=== PATIENT | female | born 1990 | race Two or more races ===

== ENCOUNTER 2024-10-26 12:54 | Inpatient (IN) | payer MEDICAID, OTHER ==
[~2024-10-26] VITALS: Ht 157.5 cm; Wt 49.5 kg
[2024-10-26] MEDS: MAGNESIUM SULFATE 1GM/100ML 100 ML IV ONE ×2 (01:15→03:01)
[2024-10-26] MEDS: cefTRIAXone 1GM/50ML D5W 50 ML IV ONE (01:15)
--- NOTE | 2024-10-26 13:16 | ED.PDOC ---
GI ASSESSMENT HPI Comments 34 y/o F, presents to the ED for CC of abdominal pain. Patient states, she has been experiencing diffuse abdominal pain with associated symptoms of nausea/vomiting onset, today (10/26/24). Patient reports, having ate [employer] last night (10/26/24) and is unsure if symptoms are related. Patient denies , diarrhea, hematemesis, or melena. No other symptoms or modifying factors present at this time. Time Seen by MD: 13:00 Reviewed Notes: Nurses Notes, Medications, Allergies Allergies: Coded Allergies: NO KNOWN ALLERGIES (Unverified , 10/26/24) Home Meds Active Scripts Ondansetron Odt 4MG Tab (ZOFRAN PO) 4 Mg Tb, 4 MG PO DAILY for 5 Days, #5 TAB ODT TAB-DISSOLVE IN MOUTH, THEN SWALLOW Prov:ALIZE BHATT MD 10/26/24 Information Source: Patient Mode of Arrival: Ambulatory Timing: Hours Duration: Since onset Prehospital treatment: None Quality: None Vomitus: Watery Stool: Normal Severity: Moderate Recent: None Recent Hx of: None Pain Location: Diffuse Modifying Factors: Nothing Associated sign and symptoms: Nausea, Vomiting, Abdominal Pain Past Medical History PAST MEDICAL HISTORY: Denies Surgical History: Denies all surgeries [employer]REDDED [employer] MACHINE History: Denies all [employer]REDDED [employer]IG[employer] MACHINE Hx Family History Family History: Unknown Social History Smoker: Non-Smoker Alcohol: Denies ETOH Use Drugs: Denies Drug Use Lives In: Home Constitutional: denies: chills, diaphoresis, fatigue, fever, malaise, sweats, weakness, others EENTM: denies: blurred vision, double vision, ear bleeding, ear discharge, ear drainage, ear pain, ear ringing, eye pain, eye redness, hearing loss, mouth pain, mouth swelling, nasal discharge, nose bleeding, nose congestion, nose pain, photophobia, tearing, throat pain, throat swelling, voice changes, others Respiratory: denies: cough, hemoptysis, orthopnea, SOB at rest, shortness of breath, SOB with excertion, stridor, wheezing, others Cardiovascular: denies: chest pain, dizzy spells, diaphoresis, Dyspnea on exertion, edema, irregular heart beat, left arm pain, lightheadedness, palpitations, PND, syncope, others Gastrointestinal: reports: abdominal pain, nausea, vomiting; denies: abdomen distended, blood streaked bowels, constipated, diarrhea, dysphagia, difficulty swallowing, hematemesis, melena, poor appetite, poor fluid intake, rectal bleeding, rectal pain, others Genitourinary: denies: abnormal vagina bleeding, burning, dyspareunia, dysuria, flank pain, frequency, hematuria, incontinence, pain, , vagina discharge, urgency, others Neurological: denies: dizziness, fainting, headache, left sided numbness, left sided weakness, numbness, paresthesia, pre-existing deficit, right sided numbness, right sided weakness, seizure, speech problems, tingling, tremors, weakness, others Musculoskeletal: denies: back pain, gout, joint pain, joint swelling, muscle pain, muscle stiffness, neck pain, others Integumetry: denies: bruises, change in color, change in hair/nails, dryness, laceration, lesions, lumps, rash, wounds, others Allergic/Immunocompromised: denies: Difficulty Healing, Frequent Infections, Hives, Itching, others Hematologic/Lymphatic: denies: anemia, blood clots, easy bleeding, easy bruising, swollen glands, others Endocrine: denies: excessive hunger, excessive sweating, excessive thirst, excessive urination, flushing, intolerance to cold, intolerance to heat, unexplained weight gain, unexplained weight loss, others Psychiatric: denies: anxiety, bipolar disorder, depression, hopeless, panic disorder, schizophrenia, sleepless, suicidal, others All Other Systems: Reviewed and Negative Physical Exam General Appearance: Moderate Distress HEENT: Normal ENT Inspection, Pharynx Normal, TMs Normal Neck: Full Range of Motion, Non-Tender, Normal, Normal Inspection Respiratory: Chest Non-Tender, Lungs Clear, No Accessory Muscle Use, No Respiratory Distress, Normal Breath Sounds Cardiovascular: No Edema, No JVD, No Murmur, No Gallop, Normal Peripheral Pulses, Regular Rate/Rhythm Breast Exam: Deferred Gastrointestinal: No Organomegaly, Non Tender, No Pulsatile Mass, Normal Bowel Sounds, Soft Genitalia: Deferred Pelvic: Deferred Rectal: Deferred Extremities: No calf tenderness, Normal capillary refill, Normal inspection, Normal range of motion, Non-tender, No pedal edema Musculoskeletal : Apperance: Normal Neurologic: Alert, set up mold technician II-XII nml as Tested, No Motor Deficits, Normal Affect, Normal Mood, No Sensory Deficits Cerebellar Function: Normal Reflexes: Normal Skin: Dry, Normal Color, Warm Peripheral Pulses: 3+ Radial (R), 3+ Radial (L) Lymphatic: No Adenopathy Was a procedure done? Was a procedure done?: No GI differential Dx Differential Diagnosis: Constipation, Diverticular disease, Esophagitis, Gastritis/PUD, Gastroenteritis, Electrolyte Imbalance, Food Poisoning, Bacterial, Viral X-Ray, Labs, Meds, VS Vital Signs Date Time Temp Pulse Resp B/P (MAP) Pulse Ox O2 Delivery O2 Flow Rate FiO2 10/26/24 15:37 97.7 94 18 102/64 (77) 96 97.7 10/26/24 13:08 98.8 108 20 93/67 (76) 97 98.8 Lab Test 10/26/24 13:15 10/26/24 13:10 Range/Units White Blood Count 6.6 4.4-10.8 10^3/uL Red Blood Count 3.69 L 4.0-5.20 10^6/uL Hemoglobin 13.3 12.2-16.2 g/dL Hematocrit 38.4 36.0-46.0 % Mean Corpuscular Volume 104.1 H 80.0-100.0 fL Mean Corpuscular Hemoglobin 36.0 H 28.0-32.0 pg Mean Corpuscular Hemoglobin Concent 34.5 32.0-36.0 g/dL Red Cell Distribution Width 14.8 H 11.8-14.3 % Platelet Count 180 140-450 10^3/uL Mean Platelet Volume 8.0 6.9-10.8 fL Neutrophils (%) (Auto) 83.8 H 37.0-80.0 % Lymphocytes (%) (Auto) 7.9 L 10.0-50.0 % Monocytes (%) (Auto) 7.8 0.0-12.0 % Eosinophils (%) (Auto) 0.0 0.0-7.0 % Basophils (%) (Auto) 0.5 0.0-2.0 % Neutrophils # (Auto) 5.5 1.6-8.6 10 ^3/uL Lymphocytes # (Auto) 0.5 0.4-5.4 10 ^3/uL Monocytes # (Auto) 0.5 0-1.3 10 ^3/uL Eosinophils # (Auto) 0 0-0.8 10 ^3/uL Basophils # (Auto) 0 0-0.2 10 ^3/uL Nucleated Red Blood Cells 0.3 % Urine Color Yellow Yellow Urine Clarity Clear Clear Urine pH 5.5 5.0-9.0 Urine Specific [place] 1.027 1.001-1.035 Urine Protein Negative Negative Urine Ketones Trace Negative Urine Blood Negative Negative /uL Urine Nitrite Negative Negative Urine Bilirubin Negative Negative Urine Urobilinogen Normal Negative mg/dL Urine Leukocyte Esterase Negative Negative /uL Urine RBC 2 0 - 4 /hpf Urine Microscopic WBC 5 0-5 /HPF Urine Squamous Epithelial Cells Few <5 /hpf Urine Bacteria Few H None Seen /hpf Urine Glucose Normal Normal mg/dL Current Medications Medications (Trade) Dose Ordered Sig/Jose Route Start Time Stop Time Status Last Admin Ondansetron HCl (Zofran) 4 mg ONCE ONCE IV 10/26/24 13:15 10/26/24 13:16 DC 10/26/24 14:31 Sodium Chloride 1,000 ml @ 1,000 mls/hr Q1H ONCE IV 10/26/24 13:15 10/26/24 14:14 DC 10/26/24 14:21 Patient alert. Complaining of nausea vomiting. Blood pressure slightly low. Saturation pristine on room air. Establish intravenous access. Was given fluids. Was given Zofran. Reviewed her history. Continue monitoring. WBC within normal limits. Abdomen is soft nontender. No sign of distress. Urinalysis within normal limits. Was given prescription of Zofran. Was told to follow up with her primary care physician. Was told to come back if there is any problem. Went to discharge the patient. She continues to have abdominal pain. Was given morphine. Was given Zofran. Explained to the patient that she will be admitted for further studies. Time of 1ST Reevaluation: 13:30 Reevaluation 1ST: Unchanged Patient Education/Counseling: Diagnosis, Treatment Family Education/Counseling: No Family Present Departure 1 Departure Time of Disposition: 13:25 Impression: Primary Impression: Gastroenteritis Disposition: 09 ADMITTED INPATIENT Admit to: Med Surg Condition: Guarded e-Prescriptions Ondansetron Odt 4MG Tab (ZOFRAN PO) 4 Mg Tb 4 MG PO DAILY for 5 Days, #5 TAB ODT TAB-DISSOLVE IN MOUTH, THEN SWALLOW Prov: ALIZE BHATT MD 10/26/24 Critical Care Note Critical Care Time?: No Stability Stability form required: No Heart Score Heart Score: Heart Score Response (Comments) Value History N/A 0 EKG N/A 0 Age N/A 0 Risk Factors N/A 0 Troponin N/A 0 Total 0 I personally scribed for ALIZE BHATT MD ([email or web address]) on 10/26/24 at 13:16. Electronically submitted by Tata Tatum ([email or web address]). ALIZE BHATT MD October 26, 2024 13:16
[2024-10-26 13:27] LABS: Basophils # (auto) 0 10 ^3/uL (0-0.2); Basophils % (auto) 0.5 % (0.0-2.0); Eosinophils # (auto) 0 10 ^3/uL (0-0.8); Hemoglobin 13.3 g/dL (12.2-16.2); Lymphocytes # (auto) 0.5 10 ^3/uL (0.4-5.4); Monocytes # (auto) 0.5 10 ^3/uL (0-1.3); Neutrophils % (auto) 83.8 % (37.0-80.0)
[2024-10-26 13:28] LABS: Hematocrit 38.4 % (36.0-46.0); Lymphocytes % (auto) 7.9 % (10.0-50.0); Mean Corpuscular Hgb Conc. 34.5 g/dL (32.0-36.0); Mean Corpuscular Volume 104.1 fL (80.0-100.0); Monocytes % (auto) 7.8 % (0.0-12.0); Neutrophils # (auto) 5.5 10 ^3/uL (1.6-8.6); Nucleated Red Blood Cells % 0.3 %; Platelet Count (auto) 180 10^3/uL (140-450); Red Blood Cells 3.69 10^6/uL (4.0-5.20); Red Cell Distribution Width 14.8 % (11.8-14.3); White Blood Cell 6.6 10^3/uL (4.4-10.8)
[2024-10-26 14:18] LABS: Urine Bacteria FEW /hpf (None Seen); Urine Blood Negative /uL (Negative); Urine Clarity Clear (Clear); Urine Color Yellow (Yellow); Urine Protein, UAD Negative (Negative); Urine Specific Gravity 1.027 (1.001-1.035); Urine Squamous Epithelial Cell FEW /hpf (<5); Urine Urobilinogen Normal (Negative); Urine WBC 5 /HPF (0-5); Urine pH 5.5 (5.0-9.0)
[2024-10-26] MEDS: SODIUM CHLORIDE 0.9% 1,000 ML IV ONE ×2 (14:21→16:15)
[2024-10-26] MEDS ORDERED: ZOFR4T PO (14:30)
[2024-10-26] MEDS: ONDANSETRON HCL 4 MG/2 ML VIAL IV ONE (14:31)
[2024-10-26 15:38] VITALS: PULSE 94; RESP 18; O2SAT 96
--- NOTE | 2024-10-26 16:10 | DVH ---
Exam: CT CT AB PEL WO CON-NO ORAL OR IV History: enteritis Comparison Study: None TECHNIQUE: Multidetector CT of the abdomen was performed from lung bases to pubic symphysis. Imaging was performed without IV contrast. Axial, coronal and sagittal multiplanar reformats were obtained fr om the axial data set by the technologist. Radiation Dose Information: CT Dose: CTDI volume is 5.19 mGy. Dose-length product is 265.76 mGy*cm FINDINGS: Evaluation of solid organs is limited due to lack of intravenous contrast use. Findings: Lung Bases: No acute or significant lung base finding. Normal heart size. No pleural or pericardial effusion. Liver: The liver is normal in size. No focal lesions. Hepatic steatosis. Gallbladder and Biliary Tree: Unremarkable Spleen: Unremarkable Pancreas: The pancreas is grossly normal in appearance. Adrenal Glands: Unremarkable Kidneys: Kidneys are grossly normal without calculi or hydronephrosis. Bladder: Grossly unremarkable for degree of distention. Bowel: The stomach is grossly normal in appearance. Small bowel and colon are normal in caliber and d istribution. The appendix is not visualized; however, no secondary findings of acute appendicitis id entified. Ascites: Absent Lymphadenopathy: No mesenteric, retroperitoneal or periportal lymphadenopathy. Abdominal Wall and Mesentery: Unremarkable. Vasculature: The visualized abdominal aorta is normal in size and caliber. Evaluation of abdominal a nd pelvic vessels is limited due to lack of intravenous contrast. Pelvic Organs: Unremarkable Musculoskeletal: No aggressive focal bony lesions, acute fractures or dislocation. Soft tissues: Unremarkable IMPRESSION: 1. No acute abdominal or pelvic finding. Radiation optimization: All CT scans at this facility use at least one of these dose optimization manjula hniques: automated exposure control mA and/or kV adjustment per patient size (includes targeted exam s where dose is matched to clinical indication) or iterative reconstruction.
[2024-10-26] MEDS: metroNIDAZOLE 500MG/100ML 100 ML IV ONE (16:15)
[2024-10-26] MEDS: PANTOPRAZOLE 40 MG/10 ML VIAL INJ IV ONE (16:15)
--- NOTE | 2024-10-26 16:17 | DVHHPRES ---
History of Present Illness Resident Creating Document: GALLITO BAEZ RESIDENT History of Present Illness This is a 34-year-old female with no past medical history who presented to the ER with a chief complaint of intractable nausea and vomiting for the past day. Per patient, she went out last night to [facility] with her kids, and starting this morning she has been experiencing diffuse lower abdominal pain which is crampy in nature, rated 7/10 in intensity, does not radiate. Associated with vomiting which is clear/yellowish, denies hematemesis or hemoptysis. Patient tolerate any liquid or solid diet. She has never had these symptoms in the past. She denied any recent travel history or history of sick contacts. She denied diarrhea or constipation. Past medical history: None Past surgical history: None OBGYN history: 2 vaginal deliveries Social history: Lives with kids, denies smoking/drug use, drinks occasionally Home medications: None PCP: Reports having a PCP but does not follow Patient seen and examined in the ER. Reporting nausea. Smoke: No ALCOHOL: none Drugs: None Lives: with Family Review of Systems Constitutional: Yes: Chills Gastrointestinal: Nausea, Vomiting, Abdominal Pain Allergies: Coded Allergies: NO KNOWN ALLERGIES (Unverified , 10/26/24) Exam Vital Signs Vital Signs Date Time Temp Pulse Resp B/P (MAP) Pulse Ox O2 Delivery O2 Flow Rate FiO2 10/26/24 15:38 94 18 96 Room Air* 0 21 10/26/24 15:37 97.7 102/64 (77) 97.7 Exam Young female patient sitting comfortably in the chair, no against stress General: Afebrile, mucosae are moist Cardiovascular: Regular S1 and S2. No murmurs, gallops or rubs. No JVD elevation. No pedal edema Respiratory: Normal B/L air entry on room air. Clear lung sounds on auscultation Abdomen: Soft, nontender, nondistended, normoactive bowel sounds, no rebound tenderness, no organomegaly, no masses Genitourinary: Deferred MSK/skin: Mobilizes 4 limbs. Skin is dry and warm Neurological: No motor, no sensitive deficits, normal speech. Pupils are isocoric and reactive. Psych/Mental Status: A/Ox3 Labs/Xrays Labs Test 10/26/24 13:15 10/26/24 13:10 Range/Units White Blood Count 6.6 4.4-10.8 10^3/uL Red Blood Count 3.69 L 4.0-5.20 10^6/uL Hemoglobin 13.3 12.2-16.2 g/dL Hematocrit 38.4 36.0-46.0 % Mean Corpuscular Volume 104.1 H 80.0-100.0 fL Mean Corpuscular Hemoglobin 36.0 H 28.0-32.0 pg Mean Corpuscular Hemoglobin Concent 34.5 32.0-36.0 g/dL Red Cell Distribution Width 14.8 H 11.8-14.3 % Platelet Count 180 140-450 10^3/uL Mean Platelet Volume 8.0 6.9-10.8 fL Neutrophils (%) (Auto) 83.8 H 37.0-80.0 % Lymphocytes (%) (Auto) 7.9 L 10.0-50.0 % Monocytes (%) (Auto) 7.8 0.0-12.0 % Eosinophils (%) (Auto) 0.0 0.0-7.0 % Basophils (%) (Auto) 0.5 0.0-2.0 % Neutrophils # (Auto) 5.5 1.6-8.6 10 ^3/uL Lymphocytes # (Auto) 0.5 0.4-5.4 10 ^3/uL Monocytes # (Auto) 0.5 0-1.3 10 ^3/uL Eosinophils # (Auto) 0 0-0.8 10 ^3/uL Basophils # (Auto) 0 0-0.2 10 ^3/uL Nucleated Red Blood Cells 0.3 % Urine Color Yellow Yellow Urine Clarity Clear Clear Urine pH 5.5 5.0-9.0 Urine Specific [place] 1.027 1.001-1.035 Urine Protein Negative Negative Urine Ketones Trace Negative Urine Blood Negative Negative /uL Urine Nitrite Negative Negative Urine Bilirubin Negative Negative Urine Urobilinogen Normal Negative mg/dL Urine Leukocyte Esterase Negative Negative /uL Urine RBC 2 0 - 4 /hpf Urine Microscopic WBC 5 0-5 /HPF Urine Squamous Epithelial Cells Few <5 /hpf Urine Bacteria Few H None Seen /hpf Urine Glucose Normal Normal mg/dL Assessment/Plan Assessment/Plan ?Pancreatitis - Triglyceride induced R/O Sepsis Acute gastroenteritis likely infectious etiology Lactic Acidosis Intractable nausea and vomiting Macrocytosis CREWS Plan: Admitted to medical unit IV fluids, IV ceftriaxone and IV metronidazole starting 10/26 CT abdomen/pelvis unremarkable for acute etiology Acetaminophen for pain control PRN Follow up with CMP, UDS, lipase, lactic acid level Follow up with B12/folic acid levels Consider fat restricted diet once vomiting resolves Gemfibrozil 600mg bid NPO Plan discussed with patient in which all questions have been answered Goals of care discussed for more than 20 minutes, full code status Case discussed with Dr. Alaniz Plan discussed with: Patient Date of Service: October 26, 2024 Billing Provider: DANICA ALANIZ MD Common Visit Codes: [id number] INP/OBS CARE (HIGH) GALLITO BAEZ RESIDENT October 26, 2024 16:17
[2024-10-26 16:36] LABS: Albumin 3.8 g/dL (3.2-4.8); Anion Gap 16 (5-15); Carbon Dioxide 22 mmol/L (20-31); Chloride 101 mmol/L (98-107); Magnesium 1.7 mg/dL (1.6-2.6); Sodium 139 mmol/L (136-145); Total Protein 7.1 g/dL (5.7-8.2)
[2024-10-26 16:37] LABS: Alanine Aminotransferase 84 U/L (7-40); Alkaline Phosphatase 119 U/L (46-116); Aspartate Aminotransferase 204 U/L (13-40); BUN/Creatinine Ratio 6.1 (10.0-20.0); Blood Urea Nitrogen < 5 mg/dL (9-23); Calcium 8.4 mg/dL (8.7-10.4); Glucose 178 mg/dL (74-106); Potassium 3.4 mmol/L (3.5-5.1)
[2024-10-26 16:42] LABS: Cocaine Screen, Urine Neg (NEGATIVE)
[2024-10-26 16:43] LABS: Amphetamine Screen, Urine Neg (NEGATIVE); Barbiturate Scree,Urine Neg (NEGATIVE); Benzodiazephine Screen, Urine Neg (NEGATIVE); Cannabinoid Screen, Urine Neg (NEGATIVE); Opiate Scree,Urine Neg (NEGATIVE); Phencyclidine Screen, Urine Neg (NEGATIVE)
[2024-10-26] MEDS: POTASSIUM CHL 20MEQ/100ML 100 ML IV SCH (17:15)
[2024-10-26 17:48] LABS: INR 1.23 (0.9-1.15); Partial Thromboplastin Time 25.1 SEC (24.5-34.5); Prothrombin Time 12.8 sec (9.3-11.8)
[2024-10-26 18:27] LABS: Lactic Acid w/Reflex 6.1 mmol/L (0.4-2.0)
[2024-10-26 19:16] LABS: Cholesterol 102 mg/dL (< 200)
[2024-10-26 19:22] LABS: HDL Cholesterol 34 mg/dL (40-59); Triglycerides 693 mg/dL (< 150)
--- NOTE | 2024-10-26 19:54 | DVH ---
INDICATION: transmanitis TECHNIQUE: Multiple real-time sonographic images of the abdomen were obtained. COMPARISON: None FINDINGS: Liver measures 17 cm and demonstrates diffuse increased echogenicity consistent with fatty infiltrati on. No focal lesion is identified in the liver. No evidence of intrahepatic or extrahepatic biliary ductal dilatation with the common bile duct measu ring 3.5 mm. Gallbladder appears unremarkable with no evidence of stones, wall thickening or pericholycystic fluid . Sonographic Sumner's sign was reportedly negative. Right kidney measures 9.8 cm in length and the left 9.9 cm. Both kidneys appear unremarkable with no hydroureteronephrosis. Spleen is normal in size and appears unremarkable. Visualized pancreas appears unremarkable. No free fluid/fluid collection IMPRESSION: No acute abnormality identified. Fatty infiltration of the liver.
[2024-10-26] MEDS: LACTATED RINGER'S 1,000 ML IV ONE (21:00)
[2024-10-26] MEDS: metroNIDAZOLE 500MG/100ML 100 ML IV SCH (22:00)
[2024-10-26] MEDS: ONDANSETRON HCL 4 MG/2 ML VIAL IV PRN (23:59)
[2024-10-27 00:19] LABS: COVID19 ANTIGEN SOFIA FIA NEGATIVE (NEGATIVE); Rapid Influenza A Negative (Negative); Rapid Influenza B Negative (Negative)
[2024-10-27] MEDS: HYDROcodone-ACET 5/325MG TAB PO ONE (01:45)
[2024-10-27] MEDS: POTASSIUM CHL 20MEQ/100ML 100 ML IV SCH (03:01)
[2024-10-27 06:29] LABS: Basophils # (auto) 0 10 ^3/uL (0-0.2); Eosinophils # (auto) 0 10 ^3/uL (0-0.8); Eosinophils % (auto) 0.1 % (0.0-7.0); Hemoglobin 11.2 g/dL (12.2-16.2); White Blood Cell 4.6 10^3/uL (4.4-10.8)
[2024-10-27 06:35] LABS: Basophils % (auto) 0.6 % (0.0-2.0); Hematocrit 32.2 % (36.0-46.0); Lymphocytes # (auto) 0.7 10 ^3/uL (0.4-5.4); Lymphocytes % (auto) 16.1 % (10.0-50.0); Mean Corpuscular Hemoglobin 36.4 pg (28.0-32.0); Mean Corpuscular Hgb Conc. 34.9 g/dL (32.0-36.0); Mean Corpuscular Volume 104.2 fL (80.0-100.0); Monocytes # (auto) 0.5 10 ^3/uL (0-1.3); Monocytes % (auto) 11.4 % (0.0-12.0); Neutrophils # (auto) 3.3 10 ^3/uL (1.6-8.6); Neutrophils % (auto) 71.8 % (37.0-80.0); Nucleated Red Blood Cells % 0.2 %; Platelet Count (auto) 120 10^3/uL (140-450); Red Blood Cells 3.09 10^6/uL (4.0-5.20); Red Cell Distribution Width 14.8 % (11.8-14.3)
[2024-10-27 06:41] LABS: Alkaline Phosphatase 83 U/L (46-116); Anion Gap 11 (5-15); Carbon Dioxide 23 mmol/L (20-31); Chloride 106 mmol/L (98-107); Potassium 4.2 mmol/L (3.5-5.1); Sodium 140 mmol/L (136-145)
[2024-10-27 06:49] LABS: Alanine Aminotransferase 60 U/L (7-40); Albumin 2.9 g/dL (3.2-4.8); Aspartate Aminotransferase 144 U/L (13-40); BUN/Creatinine Ratio 8.2 (10.0-20.0); Bilirubin, Total 1.4 mg/dL (0.2-1.0); Blood Urea Nitrogen < 5 mg/dL (9-23); Calcium 6.9 mg/dL (8.7-10.4); Glucose 133 mg/dL (74-106); Total Protein 5.5 g/dL (5.7-8.2)
[2024-10-27 07:30] VITALS: PULSE 106; RESP 18; O2SAT 98
[2024-10-27] MEDS: cefTRIAXone 1GM/50ML D5W 50 ML IV SCH (09:12)
[2024-10-27] MEDS: LACTATED RINGER'S 1,000 ML IV ONE (09:17)
[2024-10-27] MEDS: GEMFIBROZIL 600 MG TAB PO SCH (10:18)
[2024-10-27 10:58] LABS: Lactic Acid w/Reflex 2.1 mmol/L (0.4-2.0)
[2024-10-27] MEDS: ACETAMINOPHEN 325 MG TAB PO PRN (12:27)
--- NOTE | 2024-10-27 14:28 | DVHPN2 ---
Reviewed: Care Plan, H&P, Labs, Medications, Previous Orders, Radiology Changes from previous H/P or p: No Changes Gastrointestinal: Nausea, Vomiting, Abdominal Pain Objective Vitals Vital Signs Date Time Temp Pulse Resp B/P (MAP) Pulse Ox O2 Delivery O2 Flow Rate FiO2 10/27/24 14:00 91 14 100/68 (79) 95 10/27/24 12:00 98.7 98.7 10/27/24 07:30 Room Air* 0 21 Intake/Output Intake and Output 10/27/24 07:00 Intake Total 1000 ml Balance 1000 ml Intake IV Total 1000 ml Medications Current Medications Medications Dose Ordered Sig/Jose Route Start Time Stop Time Status Last Admin Dose Admin Ceftriaxone Sodium 50 ml @ 100 mls/hr DAILY@09 IV 10/27/24 09:00 10/27/24 09:12 100 MLS/HR Metronidazole 100 ml @ 100 mls/hr Q8HR IV 10/26/24 22:00 10/27/24 06:19 100 MLS/HR Ondansetron HCl 4 mg Q4HPRN PRN IV 10/26/24 16:15 10/26/24 23:59 4 MG Acetaminophen 650 mg Q4HP PRN PO 10/27/24 01:15 10/27/24 12:33 650 MG Gemfibrozil 600 mg Q12HR PO 10/27/24 10:00 10/27/24 10:18 600 MG Laboratory Results Laboratory Tests 10/27/24 05:36 Chemistry Test 10/27/24 05:36 Albumin 2.9 g/dL (3.2-4.8) L Calcium Level 6.9 mg/dL (8.7-10.4) L Total Protein 5.5 g/dL (5.7-8.2) L Lipid panel Test 10/26/24 17:35 Cholesterol Level 102 mg/dL (< 200) HDL Cholesterol 34 mg/dL (40-59) L Triglycerides Level 693 mg/dL (< 150) H LFT Test 10/27/24 05:36 Alanine Aminotransferase (ALT) 60 U/L (7-40) H Alkaline Phosphatase 83 U/L (46-116) Aspartate Amino Transferase (AST) 144 U/L (13-40) H Total Bilirubin 1.4 mg/dL (0.2-1.0) H Urinalysis Test 10/26/24 13:10 Urine Color Yellow (Yellow) Urine Clarity Clear (Clear) Urine pH 5.5 (5.0-9.0) Urine Specific [place] 1.027 (1.001-1.035) Urine Protein Negative (Negative) Urine Ketones Trace (Negative) Urine Blood Negative /uL (Negative) Urine Nitrite Negative (Negative) Urine Bilirubin Negative (Negative) Urine Urobilinogen Normal mg/dL (Negative) Urine Leukocyte Esterase Negative /uL (Negative) Urine RBC 2 /hpf (0 - 4) Urine Microscopic WBC 5 /HPF (0-5) Urine Squamous Epithelial Cells Few /hpf (<5) Urine Bacteria Few /hpf (None Seen) H Urine Glucose Normal mg/dL (Normal) Labs and/or images reviewed: Labs reviewed by me, Image(s) reviewed by me Assessment/Plan Assessment/Plan Systemic inflammatory response syndrome Acute abdominal pain Acute lactic acidosis Intractable nausea and vomiting CREWS Acute pancreatitis lipase 560 Acute enterocolitis: Rocephin Flagyl Acute dehydration: IV fluid Possible food poisoning: Patient atre [employer] yesterday and symptoms developed later Plan discussed with: Patient Date of Service: October 27, 2024 Billing Provider: MARIBELL LOMAX MD Common Visit Codes: [id number] INP/OBS CARE(HIGH) MARIBELL LOMAX MD October 27, 2024 14:27
[2024-10-27 16:00] VITALS: BP 123/89; PULSE 89; RESP 20; TEMP 99.4; O2SAT 98
[2024-10-27 16:22] VITALS: BP 123/89; PULSE 87; RESP 20; TEMP 99.4; O2SAT 98
[2024-10-27 20:00] VITALS: PULSE 83; RESP 19; O2SAT 96
[2024-10-27 21:00] VITALS: BP 118/79; PULSE 83; RESP 19; TEMP 98.5; O2SAT 96
[2024-10-28] VITALS (8 sets, daily range): BP systolic 92–116; BP diastolic 62–85; PULSE 64–91; RESP 15–20; TEMP 97.6–98.5; O2SAT 96–100
--- NOTE | 2024-10-28 08:08 | DVHPN2 ---
Reviewed: Care Plan, H&P, Labs, Medications, Previous Orders, Radiology Changes from previous H/P or p: No Changes Gastrointestinal: Nausea, Vomiting, Abdominal Pain Objective Vitals Vital Signs Date Time Temp Pulse Resp B/P (MAP) Pulse Ox O2 Delivery O2 Flow Rate FiO2 10/28/24 07:49 83 19 96 Room Air* 0 21 10/28/24 05:00 98.3 101/75 (84) 98.3 Intake/Output Intake and Output 10/28/24 07:00 Intake Total 500 ml Balance 500 ml Intake Oral 0 ml IV Total 500 ml # Voids 8 # Bowel Movements 6 Medications Current Medications Medications Dose Ordered Sig/Jose Route Start Time Stop Time Status Last Admin Dose Admin Ceftriaxone Sodium 50 ml @ 100 mls/hr DAILY@09 IV 10/27/24 09:00 10/27/24 09:12 100 MLS/HR Metronidazole 100 ml @ 100 mls/hr Q8HR IV 10/26/24 22:00 10/28/24 05:21 100 MLS/HR Ondansetron HCl 4 mg Q4HPRN PRN IV 10/26/24 16:15 10/27/24 17:28 4 MG Acetaminophen 650 mg Q4HP PRN PO 10/27/24 01:15 10/28/24 05:27 650 MG Gemfibrozil 600 mg Q12HR PO 10/27/24 10:00 10/27/24 21:22 600 MG Laboratory Results Laboratory Tests 10/27/24 05:36 Urinalysis Test 10/26/24 13:10 Urine Color Yellow (Yellow) Urine Clarity Clear (Clear) Urine pH 5.5 (5.0-9.0) Urine Specific [place] 1.027 (1.001-1.035) Urine Protein Negative (Negative) Urine Ketones Trace (Negative) Urine Blood Negative /uL (Negative) Urine Nitrite Negative (Negative) Urine Bilirubin Negative (Negative) Urine Urobilinogen Normal mg/dL (Negative) Urine Leukocyte Esterase Negative /uL (Negative) Urine RBC 2 /hpf (0 - 4) Urine Microscopic WBC 5 /HPF (0-5) Urine Squamous Epithelial Cells Few /hpf (<5) Urine Bacteria Few /hpf (None Seen) H Urine Glucose Normal mg/dL (Normal) Labs and/or images reviewed: Labs reviewed by me, Image(s) reviewed by me Assessment/Plan Assessment/Plan Systemic inflammatory response syndrome Acute abdominal pain Acute lactic acidosis Intractable nausea and vomiting CREWS Acute pancreatitis lipase 560; GI consult for Dr Osvaldo Loomis pending Acute enterocolitis: Edilbertoepmaggie Hodgeyl Acute dehydration: IV fluid Possible food poisoning: Patient atre [employer] yesterday and symptoms developed later Patient feels better Plan discussed with: Patient My Orders Orders - MARIBELL LOMAX MD Procedure Category Date Status Time * Gi [facility] Consulting Manager CONS 10/28/24 Transmitted 01:29 Date of Service: October 28, 2024 Billing Provider: MARIBELL LOMAX MD Common Visit Codes: [id number] INP/OBS CARE(HIGH) MARIBELL LOMAX MD October 28, 2024 08:08
--- NOTE | 2024-10-28 19:01 | DVHINCON2 ---
Date of service: October 28, 2024 Referring Physician German Reason for Consultation Pancreatitis Abdominal pain History of Present Illness The patient is a 34-year-old female with no significant past medical history admitted with abdominal pain, nausea and vomiting. Patient states that she had projectile vomiting. She has no prior history. Patient was noted to have elevated lipase and lactic acid. She was started on antibiotics. GI consultation was obtained. Patient has no prior history of pancreatitis. She denies any hematemesis, melena or hematochezia. She denies any ill contacts. Patient was noted to have hypertriglyceridemia. Past Medical History Denies Past Surgical History Denies past surgical history Family History: Hypercholesterolemia G8 MOTHER G8 FATHER Hypertension G8 MOTHER G8 FATHER Family History No gastrointestinal diseases or malignancies Social History Social alcohol No tobacco No recreational drug use Allergies: Coded Allergies: NO KNOWN ALLERGIES (Unverified , 10/26/24) Home Meds Active Scripts Ondansetron Odt 4MG Tab (ZOFRAN PO) 4 Mg Tb, 4 MG PO DAILY for 5 Days, #5 TAB ODT TAB-DISSOLVE IN MOUTH, THEN SWALLOW Prov:ALIZE BHATT MD 10/26/24 Review of Systems General: No weight loss Head: No visual changes or headaches Heart: No chest pain or palpitations PULM: No cough wheeze or shortness of breath GI: See HPI : No dysuria hematuria Endocrine: Newly diagnosed hypertriglyceridemia Skin: No rashes bruises or pruritus Neuro: No stroke or seizure Psych: No depression anxiety or psychosis Heme: No anemia or malignancy Vital Signs Vital Signs Date Time Temp Pulse Resp B/P (MAP) Pulse Ox O2 Delivery O2 Flow Rate FiO2 10/28/24 17:00 98.4 73 19 110/78 (89) 98 98.4 10/28/24 07:49 Room Air* 0 21 Physical Exam General: Alert and oriented x4 no distress Head: NC/AT EOMI PERRLA O/P clear Heart: Regular rate and rhythm no murmurs rubs or gallops Lungs: Clear to auscultation bilaterally Abdomen: Soft mild epigastric tenderness to palpation normal active bowel s ounds Extremity: No clubbing cyanosis or edema Neuro: Moves all four extremities Labs/Diagnostic Data Labs Test 10/27/24 12:42 10/27/24 05:36 10/26/24 23:30 10/26/24 17:35 Range/Units Lactic Acid Level 2.2 *H 0.4-2.0 mmol/L White Blood Count 4.6 # 4.4-10.8 10^3/uL Red Blood Count 3.09 L 4.0-5.20 10^6/uL Hemoglobin 11.2 #L 12.2-16.2 g/dL Hematocrit 32.2 #L 36.0-46.0 % Mean Corpuscular Volume 104.2 H 80.0-100.0 fL Mean Corpuscular Hemoglobin 36.4 H 28.0-32.0 pg Mean Corpuscular Hemoglobin Concent 34.9 32.0-36.0 g/dL Red Cell Distribution Width 14.8 H 11.8-14.3 % Platelet Count 120 L 140-450 10^3/uL Mean Platelet Volume 8.4 6.9-10.8 fL Neutrophils (%) (Auto) 71.8 37.0-80.0 % Lymphocytes (%) (Auto) 16.1 10.0-50.0 % Monocytes (%) (Auto) 11.4 0.0-12.0 % Eosinophils (%) (Auto) 0.1 0.0-7.0 % Basophils (%) (Auto) 0.6 0.0-2.0 % Neutrophils # (Auto) 3.3 1.6-8.6 10 ^3/uL Lymphocytes # (Auto) 0.7 0.4-5.4 10 ^3/uL Monocytes # (Auto) 0.5 0-1.3 10 ^3/uL Eosinophils # (Auto) 0 0-0.8 10 ^3/uL Basophils # (Auto) 0 0-0.2 10 ^3/uL Nucleated Red Blood Cells 0.2 % Sodium Level 140 136-145 mmol/L Potassium Level 4.2 3.5-5.1 mmol/L Chloride Level 106 98-107 mmol/L Carbon Dioxide Level 23 20-31 mmol/L Anion Gap 11 5-15 Blood Urea Nitrogen < 5 L 9-23 mg/dL Creatinine 0.61 0.550-1.02 mg/dL Glomerular Filtration Rate Calc 120 >90 mL/min BUN/Creatinine Ratio 8.2 L 10.0-20.0 Serum Glucose 133 H 74-106 mg/dL Calcium Level 6.9 L 8.7-10.4 mg/dL Total Bilirubin 1.4 H 0.2-1.0 mg/dL Aspartate Amino Transferase (AST) 144 H 13-40 U/L Alanine Aminotransferase (ALT) 60 H 7-40 U/L Alkaline Phosphatase 83 46-116 U/L Total Protein 5.5 L 5.7-8.2 g/dL Albumin 2.9 L 3.2-4.8 g/dL Influenza Type A Antigen Negative Negative Influenza Type B Antigen Negative Negative SARS-CoV-2 Antigen (Rapid) Negative NEGATIVE Triglycerides Level 693 H < 150 mg/dL Cholesterol Level 102 < 200 mg/dL LDL Cholesterol < 100 mg/dL HDL Cholesterol 34 L 40-59 mg/dL Plasma/Serum Blood Alcohol 5.6 <10 mg/dL Test 10/26/24 13:15 10/26/24 13:10 Range/Units Prothrombin Time 12.8 H 9.3-11.8 sec Prothrombin Time INR 1.23 H 0.9-1.15 Activated Partial Thromboplast Time 25.1 24.5-34.5 SEC Hemoglobin A1c 4.9 <5.7 % A1C Magnesium Level 1.7 1.6-2.6 mg/dL Lipase 560 H 12-53 U/L Vitamin B12 Level 762 211-911 pg/mL Vitamin D 25-Hydroxy 44.5 30.0-100 ng/mL Thyroid Stimulating Hormone (TSH) 2.28 0.55-4.78 uIU/mL Urine Color Yellow Yellow Urine Clarity Clear Clear Urine pH 5.5 5.0-9.0 Urine Specific [place] 1.027 1.001-1.035 Urine Protein Negative Negative Urine Ketones Trace Negative Urine Blood Negative Negative /uL Urine Nitrite Negative Negative Urine Bilirubin Negative Negative Urine Urobilinogen Normal Negative mg/dL Urine Leukocyte Esterase Negative Negative /uL Urine RBC 2 0 - 4 /hpf Urine Microscopic WBC 5 0-5 /HPF Urine Squamous Epithelial Cells Few <5 /hpf Urine Bacteria Few H None Seen /hpf Urine Glucose Normal Normal mg/dL Urine Opiates Screen Neg NEGATIVE Urine Fentanyl Screen Neg NEGATIVE Urine Barbiturates Screen Neg NEGATIVE Urine Phencyclidine Screen Neg NEGATIVE Urine Amphetamines Screen Neg NEGATIVE Urine Benzodiazepines Screen Neg NEGATIVE Urine Cocaine Screen Neg NEGATIVE Urine Cannabinoids Screen Neg NEGATIVE Assessment 1. Abdominal pain 2. Elevated triglycerides 3. Acute pancreatitis 4. Nausea and vomiting Acute pancreatitis likely secondary to hypertriglyceridemia. No evidence of acute pancreatitis on imaging or evidence of gallstones. Differential diagnosis includes gastroenteritis Problems(with codes): (1) Gastroenteritis (2) Acute pancreatitis Plan/Recommendation 1. Continue antibiotics 2. Follow labs 3. Clear liquid diet as tolerated 4. No GI intervention at this time 5. Pain control and antiemetics 6. We will discuss my findings and recommendations with the hospital Plan discussed with: Patient GABBY MCKEON MD October 28, 2024 19:01
[2024-10-29] VITALS (8 sets, daily range): BP systolic 101–112; BP diastolic 68–88; PULSE 64–96; RESP 15–20; TEMP 97.7–98.9; O2SAT 96–99
[2024-10-29 06:46] LABS: Basophils # (auto) 0 10 ^3/uL (0-0.2); Eosinophils # (auto) 0.1 10 ^3/uL (0-0.8); Eosinophils % (auto) 1.7 % (0.0-7.0); Lymphocytes # (auto) 0.8 10 ^3/uL (0.4-5.4); Mean Corpuscular Volume 105.4 fL (80.0-100.0); Monocytes # (auto) 0.7 10 ^3/uL (0-1.3); Monocytes % (auto) 10.8 % (0.0-12.0); Platelet Count (auto) 128 10^3/uL (140-450)
[2024-10-29 06:48] LABS: Basophils % (auto) 0.6 % (0.0-2.0); Hematocrit 34.7 % (36.0-46.0); Lymphocytes % (auto) 12.7 % (10.0-50.0); Mean Corpuscular Hemoglobin 36.5 pg (28.0-32.0); Mean Corpuscular Hgb Conc. 34.7 g/dL (32.0-36.0); Neutrophils # (auto) 4.7 10 ^3/uL (1.6-8.6); Neutrophils % (auto) 74.2 % (37.0-80.0); Nucleated Red Blood Cells % 0.1 %; Red Cell Distribution Width 14.8 % (11.8-14.3); White Blood Cell 6.3 10^3/uL (4.4-10.8)
[2024-10-29 07:05] LABS: Albumin 3.5 g/dL (3.2-4.8); Anion Gap 12 (5-15); Calcium 8.9 mg/dL (8.7-10.4); Chloride 106 mmol/L (98-107); Glucose 80 mg/dL (74-106); Sodium 138 mmol/L (136-145); Total Protein 6.6 g/dL (5.7-8.2)
[2024-10-29 07:06] LABS: Bilirubin, Total 1.2 mg/dL (0.2-1.0)
[2024-10-29 07:07] LABS: Alanine Aminotransferase 46 U/L (7-40); Alkaline Phosphatase 119 U/L (46-116); Aspartate Aminotransferase 68 U/L (13-40); BUN/Creatinine Ratio 8.3 (10.0-20.0); Blood Urea Nitrogen < 5 mg/dL (9-23); Carbon Dioxide 20 mmol/L (20-31); Potassium 3.3 mmol/L (3.5-5.1)
[2024-10-29 07:42] LABS: Lipase 472 U/L (12-53)
--- NOTE | 2024-10-29 09:14 | DVHPN2 ---
Reviewed: Care Plan, H&P, Labs, Medications, Previous Orders, Radiology Changes from previous H/P or p: No Changes Gastrointestinal: Nausea, Vomiting, Abdominal Pain Objective Vitals Vital Signs Date Time Temp Pulse Resp B/P (MAP) Pulse Ox O2 Delivery O2 Flow Rate FiO2 10/29/24 05:00 98.3 64 15 101/69 (80) 97 98.3 10/28/24 20:00 Room Air* 0 21 Intake/Output Intake and Output 10/29/24 07:00 Intake Total 1050 ml Balance 1050 ml Intake Oral 700 ml IV Total 350 ml # Voids 10 # Bowel Movements 4 Medications Current Medications Medications Dose Ordered Sig/Jose Route Start Time Stop Time Status Last Admin Dose Admin Ceftriaxone Sodium 50 ml @ 100 mls/hr DAILY@09 IV 10/27/24 09:00 10/29/24 08:41 100 MLS/HR Metronidazole 100 ml @ 100 mls/hr Q8HR IV 10/26/24 22:00 10/29/24 05:41 100 MLS/HR Ondansetron HCl 4 mg Q4HPRN PRN IV 10/26/24 16:15 10/27/24 17:28 4 MG Acetaminophen 650 mg Q4HP PRN PO 10/27/24 01:15 10/29/24 08:41 650 MG Gemfibrozil 600 mg Q12HR PO 10/27/24 10:00 10/28/24 20:36 600 MG Laboratory Results Laboratory Tests 10/29/24 05:43 Chemistry Test 10/29/24 05:43 Albumin 3.5 g/dL (3.2-4.8) Calcium Level 8.9 mg/dL (8.7-10.4) Total Protein 6.6 g/dL (5.7-8.2) Lipid panel Test 10/29/24 05:43 Lipase 472 U/L (12-53) H LFT Test 10/29/24 05:43 Alanine Aminotransferase (ALT) 46 U/L (7-40) H Alkaline Phosphatase 119 U/L (46-116) H Aspartate Amino Transferase (AST) 68 U/L (13-40) H Total Bilirubin 1.2 mg/dL (0.2-1.0) H Urinalysis Test 10/26/24 13:10 Urine Color Yellow (Yellow) Urine Clarity Clear (Clear) Urine pH 5.5 (5.0-9.0) Urine Specific [place] 1.027 (1.001-1.035) Urine Protein Negative (Negative) Urine Ketones Trace (Negative) Urine Blood Negative /uL (Negative) Urine Nitrite Negative (Negative) Urine Bilirubin Negative (Negative) Urine Urobilinogen Normal mg/dL (Negative) Urine Leukocyte Esterase Negative /uL (Negative) Urine RBC 2 /hpf (0 - 4) Urine Microscopic WBC 5 /HPF (0-5) Urine Squamous Epithelial Cells Few /hpf (<5) Urine Bacteria Few /hpf (None Seen) H Urine Glucose Normal mg/dL (Normal) Labs and/or images reviewed: Labs reviewed by me, Image(s) reviewed by me Assessment/Plan Assessment/Plan Systemic inflammatory response syndrome Acute abdominal pain Acute lactic acidosis Intractable nausea and vomiting CREWS Acute pancreatitis lipase 560; GI consult for Dr Osvaldo Loomis appreciated Hypertriglyceridemia: Lopid 600 mg p.o. b.i.d. Acute enterocolitis: Rocephin Flagyl Acute dehydration: IV fluid Possible food poisoning: Patient atre [employer] yesterday and symptoms developed later Patient feels better Start soft diet Plan discussed with: Patient Date of Service: October 29, 2024 Billing Provider: MARIBELL LOMAX MD Common Visit Codes: [id number] INP/OBS CARE(HIGH) MARIBELL LOMAX MD October 29, 2024 09:14
--- NOTE | 2024-10-29 14:20 | PRN ---
Misceleneous Note Note Note October 29, 2024 Subjective: Patient is feeling better. She is tolerating a diet. Pain is improved Objective: Alert and oriented x4 NC/AT EOMI PERRLA Regular rate and rhythm Soft nontender nondistended No clubbing cyanosis or edema Labs Test 10/29/24 05:43 10/27/24 12:42 10/26/24 23:30 10/26/24 17:35 Range/Units White Blood Count 6.3 # 4.4-10.8 10^3/uL Red Blood Count 3.30 L 4.0-5.20 10^6/uL Hemoglobin 12.0 L 12.2-16.2 g/dL Hematocrit 34.7 L 36.0-46.0 % Mean Corpuscular Volume 105.4 H 80.0-100.0 fL Mean Corpuscular Hemoglobin 36.5 H 28.0-32.0 pg Mean Corpuscular Hemoglobin Concent 34.7 32.0-36.0 g/dL Red Cell Distribution Width 14.8 H 11.8-14.3 % Platelet Count 128 L 140-450 10^3/uL Mean Platelet Volume 8.4 6.9-10.8 fL Neutrophils (%) (Auto) 74.2 37.0-80.0 % Lymphocytes (%) (Auto) 12.7 10.0-50.0 % Monocytes (%) (Auto) 10.8 0.0-12.0 % Eosinophils (%) (Auto) 1.7 0.0-7.0 % Basophils (%) (Auto) 0.6 0.0-2.0 % Neutrophils # (Auto) 4.7 1.6-8.6 10 ^3/uL Lymphocytes # (Auto) 0.8 0.4-5.4 10 ^3/uL Monocytes # (Auto) 0.7 0-1.3 10 ^3/uL Eosinophils # (Auto) 0.1 0-0.8 10 ^3/uL Basophils # (Auto) 0 0-0.2 10 ^3/uL Nucleated Red Blood Cells 0.1 % Sodium Level 138 136-145 mmol/L Potassium Level 3.3 L 3.5-5.1 mmol/L Chloride Level 106 98-107 mmol/L Carbon Dioxide Level 20 20-31 mmol/L Anion Gap 12 5-15 Blood Urea Nitrogen < 5 L 9-23 mg/dL Creatinine 0.60 0.550-1.02 mg/dL Glomerular Filtration Rate Calc 121 >90 mL/min BUN/Creatinine Ratio 8.3 L 10.0-20.0 Serum Glucose 80 74-106 mg/dL Calcium Level 8.9 8.7-10.4 mg/dL Total Bilirubin 1.2 H 0.2-1.0 mg/dL Aspartate Amino Transferase (AST) 68 H 13-40 U/L Alanine Aminotransferase (ALT) 46 H 7-40 U/L Alkaline Phosphatase 119 H 46-116 U/L Total Protein 6.6 5.7-8.2 g/dL Albumin 3.5 3.2-4.8 g/dL Lipase 472 H 12-53 U/L Lactic Acid Level 2.2 *H 0.4-2.0 mmol/L Influenza Type A Antigen Negative Negative Influenza Type B Antigen Negative Negative SARS-CoV-2 Antigen (Rapid) Negative NEGATIVE Triglycerides Level 693 H < 150 mg/dL Cholesterol Level 102 < 200 mg/dL LDL Cholesterol < 100 mg/dL HDL Cholesterol 34 L 40-59 mg/dL Plasma/Serum Blood Alcohol 5.6 <10 mg/dL Test 10/26/24 13:15 10/26/24 13:10 Range/Units Prothrombin Time 12.8 H 9.3-11.8 sec Prothrombin Time INR 1.23 H 0.9-1.15 Activated Partial Thromboplast Time 25.1 24.5-34.5 SEC Hemoglobin A1c 4.9 <5.7 % A1C Magnesium Level 1.7 1.6-2.6 mg/dL Vitamin B12 Level 762 211-911 pg/mL Vitamin D 25-Hydroxy 44.5 30.0-100 ng/mL Thyroid Stimulating Hormone (TSH) 2.28 0.55-4.78 uIU/mL Urine Color Yellow Yellow Urine Clarity Clear Clear Urine pH 5.5 5.0-9.0 Urine Specific [place] 1.027 1.001-1.035 Urine Protein Negative Negative Urine Ketones Trace Negative Urine Blood Negative Negative /uL Urine Nitrite Negative Negative Urine Bilirubin Negative Negative Urine Urobilinogen Normal Negative mg/dL Urine Leukocyte Esterase Negative Negative /uL Urine RBC 2 0 - 4 /hpf Urine Microscopic WBC 5 0-5 /HPF Urine Squamous Epithelial Cells Few <5 /hpf Urine Bacteria Few H None Seen /hpf Urine Glucose Normal Normal mg/dL Urine Opiates Screen Neg NEGATIVE Urine Fentanyl Screen Neg NEGATIVE Urine Barbiturates Screen Neg NEGATIVE Urine Phencyclidine Screen Neg NEGATIVE Urine Amphetamines Screen Neg NEGATIVE Urine Benzodiazepines Screen Neg NEGATIVE Urine Cocaine Screen Neg NEGATIVE Urine Cannabinoids Screen Neg NEGATIVE Vital Signs Date Time Temp Pulse Resp B/P (MAP) Pulse Ox O2 Delivery O2 Flow Rate FiO2 10/29/24 13:00 97.7 75 19 109/80 (90) 97 97.7 10/29/24 08:00 Room Air* 0 21 Impression: 1. Hypertriglyceridemia 2. Acute pancreatitis 3. Transaminitis 4. Abdominal pain Differential diagnosis includes biliary sludge or stones, or hypertriglyceridemia Recommendations: 1. Diet as tolerated 2. Consider surgical consultation for evaluation for cholecystectomy as outpatient 3. We will follow 4. Consider MRCP if symptoms persist or worsen and the patient has elevation of liver enzymes 5. Consider ERCP GABBY MCKEON MD October 29, 2024 14:20
[2024-10-30] VITALS (7 sets, daily range): BP systolic 102–123; BP diastolic 73–80; PULSE 66–107; RESP 16–18; TEMP 97.8–99.5; O2SAT 97–99
--- NOTE | 2024-10-30 08:53 | PRN ---
Misceleneous Note Note Note October 30, 2024 Subjective: Patient continues to have abdominal pain. She is tolerating a diet. Pain is epigastric interval sharp last evening. Today this mild. Objective: Vital Signs Date Time Temp Pulse Resp B/P (MAP) Pulse Ox O2 Delivery O2 Flow Rate FiO2 10/30/24 08:32 97.8 79 16 110/80 (90) 97 97.8 10/30/24 08:00 Room Air* 0 21 Alert and oriented x4 NC/AT EOMI PERRLA Regular rate and rhythm Soft mild tendern region , no masses, no rebound tenderness or guarding No clubbing cyanosis or edema Labs Test 10/30/24 05:25 10/29/24 05:43 10/27/24 12:42 10/26/24 23:30 Range/Units Lipase 512 H 12-53 U/L White Blood Count 6.3 # 4.4-10.8 10^3/uL Red Blood Count 3.30 L 4.0-5.20 10^6/uL Hemoglobin 12.0 L 12.2-16.2 g/dL Hematocrit 34.7 L 36.0-46.0 % Mean Corpuscular Volume 105.4 H 80.0-100.0 fL Mean Corpuscular Hemoglobin 36.5 H 28.0-32.0 pg Mean Corpuscular Hemoglobin Concent 34.7 32.0-36.0 g/dL Red Cell Distribution Width 14.8 H 11.8-14.3 % Platelet Count 128 L 140-450 10^3/uL Mean Platelet Volume 8.4 6.9-10.8 fL Neutrophils (%) (Auto) 74.2 37.0-80.0 % Lymphocytes (%) (Auto) 12.7 10.0-50.0 % Monocytes (%) (Auto) 10.8 0.0-12.0 % Eosinophils (%) (Auto) 1.7 0.0-7.0 % Basophils (%) (Auto) 0.6 0.0-2.0 % Neutrophils # (Auto) 4.7 1.6-8.6 10 ^3/uL Lymphocytes # (Auto) 0.8 0.4-5.4 10 ^3/uL Monocytes # (Auto) 0.7 0-1.3 10 ^3/uL Eosinophils # (Auto) 0.1 0-0.8 10 ^3/uL Basophils # (Auto) 0 0-0.2 10 ^3/uL Nucleated Red Blood Cells 0.1 % Sodium Level 138 136-145 mmol/L Potassium Level 3.3 L 3.5-5.1 mmol/L Chloride Level 106 98-107 mmol/L Carbon Dioxide Level 20 20-31 mmol/L Anion Gap 12 5-15 Blood Urea Nitrogen < 5 L 9-23 mg/dL Creatinine 0.60 0.550-1.02 mg/dL Glomerular Filtration Rate Calc 121 >90 mL/min BUN/Creatinine Ratio 8.3 L 10.0-20.0 Serum Glucose 80 74-106 mg/dL Calcium Level 8.9 8.7-10.4 mg/dL Total Bilirubin 1.2 H 0.2-1.0 mg/dL Aspartate Amino Transferase (AST) 68 H 13-40 U/L Alanine Aminotransferase (ALT) 46 H 7-40 U/L Alkaline Phosphatase 119 H 46-116 U/L Total Protein 6.6 5.7-8.2 g/dL Albumin 3.5 3.2-4.8 g/dL Lactic Acid Level 2.2 *H 0.4-2.0 mmol/L Influenza Type A Antigen Negative Negative Influenza Type B Antigen Negative Negative SARS-CoV-2 Antigen (Rapid) Negative NEGATIVE Test 10/26/24 17:35 10/26/24 13:15 10/26/24 13:10 Range/Units Triglycerides Level 693 H < 150 mg/dL Cholesterol Level 102 < 200 mg/dL LDL Cholesterol < 100 mg/dL HDL Cholesterol 34 L 40-59 mg/dL Plasma/Serum Blood Alcohol 5.6 <10 mg/dL Prothrombin Time 12.8 H 9.3-11.8 sec Prothrombin Time INR 1.23 H 0.9-1.15 Activated Partial Thromboplast Time 25.1 24.5-34.5 SEC Hemoglobin A1c 4.9 <5.7 % A1C Magnesium Level 1.7 1.6-2.6 mg/dL Vitamin B12 Level 762 211-911 pg/mL Vitamin D 25-Hydroxy 44.5 30.0-100 ng/mL Thyroid Stimulating Hormone (TSH) 2.28 0.55-4.78 uIU/mL Urine Color Yellow Yellow Urine Clarity Clear Clear Urine pH 5.5 5.0-9.0 Urine Specific [place] 1.027 1.001-1.035 Urine Protein Negative Negative Urine Ketones Trace Negative Urine Blood Negative Negative /uL Urine Nitrite Negative Negative Urine Bilirubin Negative Negative Urine Urobilinogen Normal Negative mg/dL Urine Leukocyte Esterase Negative Negative /uL Urine RBC 2 0 - 4 /hpf Urine Microscopic WBC 5 0-5 /HPF Urine Squamous Epithelial Cells Few <5 /hpf Urine Bacteria Few H None Seen /hpf Urine Glucose Normal Normal mg/dL Urine Opiates Screen Neg NEGATIVE Urine Fentanyl Screen Neg NEGATIVE Urine Barbiturates Screen Neg NEGATIVE Urine Phencyclidine Screen Neg NEGATIVE Urine Amphetamines Screen Neg NEGATIVE Urine Benzodiazepines Screen Neg NEGATIVE Urine Cocaine Screen Neg NEGATIVE Urine Cannabinoids Screen Neg NEGATIVE Impression: 1. Abdominal pain Nausea and vomiting Pancreatitis Hypertriglyceridemia Patient's lipase remains elevated She continues to have abdominal pain although it is improving Recommendations: 1. Diet as tolerated 2. Pain control 3. Follow labs 4. Consider MRCP 5. I will be signing off to Dr. Arango 6. Consider surgical consultation for cholecystectomy GABBY MCKEON MD Oct 30, 2024 08:53
--- NOTE | 2024-10-30 09:31 | DVHPN2 ---
Reviewed: Care Plan, H&P, Labs, Medications, Previous Orders, Radiology Changes from previous H/P or p: No Changes Gastrointestinal: Nausea, Vomiting, Abdominal Pain Objective Vitals Vital Signs Date Time Temp Pulse Resp B/P (MAP) Pulse Ox O2 Delivery O2 Flow Rate FiO2 10/30/24 08:32 97.8 79 16 110/80 (90) 97 97.8 10/30/24 08:00 Room Air* 0 21 Intake/Output Intake and Output 10/30/24 07:00 Intake Total 3380 ml Balance 3380 ml Intake Oral 3180 ml IV Total 200 ml # Voids 10 # Bowel Movements 5 Medications Current Medications Medications Dose Ordered Sig/Jose Route Start Time Stop Time Status Last Admin Dose Admin Ceftriaxone Sodium 50 ml @ 100 mls/hr DAILY@09 IV 10/27/24 09:00 10/30/24 07:28 100 MLS/HR Metronidazole 100 ml @ 100 mls/hr Q8HR IV 10/26/24 22:00 10/30/24 05:27 100 MLS/HR Ondansetron HCl 4 mg Q4HPRN PRN IV 10/26/24 16:15 10/27/24 17:28 4 MG Acetaminophen 650 mg Q4HP PRN PO 10/27/24 01:15 10/30/24 07:27 650 MG Gemfibrozil 600 mg Q12HR PO 10/27/24 10:00 10/29/24 21:03 600 MG Laboratory Results Laboratory Tests 10/29/24 05:43 Lipid panel Test 10/30/24 05:25 Lipase 512 U/L (12-53) H Urinalysis Test 10/26/24 13:10 Urine Color Yellow (Yellow) Urine Clarity Clear (Clear) Urine pH 5.5 (5.0-9.0) Urine Specific [place] 1.027 (1.001-1.035) Urine Protein Negative (Negative) Urine Ketones Trace (Negative) Urine Blood Negative /uL (Negative) Urine Nitrite Negative (Negative) Urine Bilirubin Negative (Negative) Urine Urobilinogen Normal mg/dL (Negative) Urine Leukocyte Esterase Negative /uL (Negative) Urine RBC 2 /hpf (0 - 4) Urine Microscopic WBC 5 /HPF (0-5) Urine Squamous Epithelial Cells Few /hpf (<5) Urine Bacteria Few /hpf (None Seen) H Urine Glucose Normal mg/dL (Normal) Labs and/or images reviewed: Labs reviewed by me, Image(s) reviewed by me Assessment/Plan Assessment/Plan Systemic inflammatory response syndrome Acute abdominal pain Acute lactic acidosis Intractable nausea and vomiting CREWS Acute pancreatitis lipase 560; GI consult for Dr Osvaldo Loomis appreciated lipase is still elevated 512, MRCP ordered Hypertriglyceridemia: Lopid 600 mg p.o. b.i.d. Acute enterocolitis: Rocephin Flagyl Acute dehydration: IV fluid Possible food poisoning: Patient atre [employer] yesterday and symptoms developed later Patient feels better Start soft diet Plan discussed with: Patient Date of Service: Oct 30, 2024 Billing Provider: MARIBELL LOMAX MD Common Visit Codes: [id number] INP/OBS CARE(HIGH) MARIBELL LOMAX MD Oct 30, 2024 09:31
[2024-10-30] MEDS: LORazepam 2MG/ML-1ML VIAL IM ONE (09:47)
[2024-10-30] MEDS: LORazepam 2MG/ML-1ML VIAL IV ONE (09:52)
--- NOTE | 2024-10-30 12:08 | DVH ---
CLINICAL INFORMATION: Pancreatitis. TECHNIQUE: Multisequence multiplanar MRI images of the abdomen were obtained without IV contrast. Inc omplete examination. Only the coronal T2 haste, axial T2 haste, and axial T2 haste fat saturated imag es were obtained. Patient could not complete the examination due to claustrophobia. MRCP images were not able to be obtained. COMPARISON: Ultrasound dated 10/26/2024. CT dated 10/26/2024. FINDINGS: No gallstones visualized in the gallbladder. No biliary ductal dilatation. There is pancrea tic edema small amount of peripancreatic fluid consistent with reported clinical history of acute ballesteros creatitis. Spleen, adrenal glands, and kidneys appear unremarkable. No abnormality identified in the liver on limited images obtained. Partially visualized cystic structure in the right adnexal region measuring up to 3.4 cm, likely ovarian cyst, also seen on recent CT. IMPRESSION: 1. Limited, incomplete examination. MRCP images were not able to be obtained. 2. Findings consistent with reported clinical history of acute pancreatitis as described above. 3. No biliary ductal dilatation. No gallstones visualized in the gallbladder. 4. Partially visualized right ovarian cyst as described above.
[2024-10-31] VITALS (8 sets, daily range): BP systolic 101–116; BP diastolic 72–81; PULSE 67–95; RESP 16–18; TEMP 98–98.3; O2SAT 97–99
--- NOTE | 2024-10-31 10:23 | DVHPN2 ---
Reviewed: Care Plan, H&P, Labs, Medications, Previous Orders, Radiology Changes from previous H/P or p: No Changes Gastrointestinal: Nausea, Vomiting, Abdominal Pain Objective Vitals Vital Signs Date Time Temp Pulse Resp B/P (MAP) Pulse Ox O2 Delivery O2 Flow Rate FiO2 10/31/24 08:26 98.0 91 16 103/77 (86) 99 98.0 10/30/24 20:00 Room Air* 0 21 Intake/Output Intake and Output 10/31/24 07:00 Intake Total 1800 ml Balance 1800 ml Intake Oral 1600 ml IV Total 200 ml # Voids 14 # Bowel Movements 2 Medications Current Medications Medications Dose Ordered Sig/Jose Route Start Time Stop Time Status Last Admin Dose Admin Ceftriaxone Sodium 50 ml @ 100 mls/hr DAILY@09 IV 10/27/24 09:00 10/31/24 09:29 100 MLS/HR Metronidazole 100 ml @ 100 mls/hr Q8HR IV 10/26/24 22:00 10/31/24 05:23 100 MLS/HR Ondansetron HCl 4 mg Q4HPRN PRN IV 10/26/24 16:15 10/27/24 17:28 4 MG Acetaminophen 650 mg Q4HP PRN PO 10/27/24 01:15 10/31/24 09:30 650 MG Gemfibrozil 600 mg Q12HR PO 10/27/24 10:00 10/31/24 09:29 600 MG Laboratory Results Laboratory Tests 10/29/24 05:43 Urinalysis Test 10/26/24 13:10 Urine Color Yellow (Yellow) Urine Clarity Clear (Clear) Urine pH 5.5 (5.0-9.0) Urine Specific [place] 1.027 (1.001-1.035) Urine Protein Negative (Negative) Urine Ketones Trace (Negative) Urine Blood Negative /uL (Negative) Urine Nitrite Negative (Negative) Urine Bilirubin Negative (Negative) Urine Urobilinogen Normal mg/dL (Negative) Urine Leukocyte Esterase Negative /uL (Negative) Urine RBC 2 /hpf (0 - 4) Urine Microscopic WBC 5 /HPF (0-5) Urine Squamous Epithelial Cells Few /hpf (<5) Urine Bacteria Few /hpf (None Seen) H Urine Glucose Normal mg/dL (Normal) Labs and/or images reviewed: Labs reviewed by me, Image(s) reviewed by me Assessment/Plan Assessment/Plan Systemic inflammatory response syndrome Acute abdominal pain Acute lactic acidosis Intractable nausea and vomiting CREWS Acute pancreatitis lipase 560; GI consult for Dr Osvaldo Loomis appreciated lipase is still elevated 512, MRCP ordered Hypertriglyceridemia: Lopid 600 mg p.o. b.i.d. Acute enterocolitis: Rocephin Flagyl Acute dehydration: IV fluid Possible food poisoning: Patient atre [employer] yesterday and symptoms developed later Patient feels better Start soft diet MRCP negative for any CBD stones or CBD dilatation Patient continues to have abdominal pain, we will have GI Dr. Valerie Arango review the case Plan discussed with: Patient Date of Service: Oct 31, 2024 Billing Provider: MARIBELL LOMAX MD Common Visit Codes: [id number] INP/OBS CARE(HIGH) MARIBELL LOMAX MD Oct 31, 2024 10:23
[2024-10-31] MEDS: PANTOPRAZOLE 40 MG/10 ML VIAL INJ IV ONE (15:30)
--- NOTE | 2024-10-31 22:33 | DVHPN2 ---
Progress Note - Dictate Date Seen: Oct 31, 2024 Medical Necessity Reason Pt with a Central, PICC or Fol: No Subjective Patient was doing better today She was in the shower Abdominal pain improving Mild persistent elevation in lipase Liver enzymes are trending down Note increase triglycerides over 600 vital signs Vital Sign Date Time Temp Pulse Resp B/P (MAP) Pulse Ox O2 Delivery O2 Flow Rate FiO2 10/31/24 21:00 98.1 91 16 116/81 (93) 98 98.1 10/31/24 08:00 Room Air* 0 21 Total Intake and Output 10/30/24 10/30/24 10/31/24 15:00 23:00 07:00 Intake Total 100 ml 1700 ml Balance 100 ml 1700 ml medications Current Medications Medications Dose Ordered Sig/Jose Route Start Time Stop Time Status Last Admin Dose Admin Ceftriaxone Sodium 50 ml @ 100 mls/hr DAILY@09 IV 10/27/24 09:00 10/31/24 09:29 100 MLS/HR Metronidazole 100 ml @ 100 mls/hr Q8HR IV 10/26/24 22:00 10/31/24 21:58 100 MLS/HR Ondansetron HCl 4 mg Q4HPRN PRN IV 10/26/24 16:15 10/27/24 17:28 4 MG Acetaminophen 650 mg Q4HP PRN PO 10/27/24 01:15 10/31/24 19:59 650 MG Gemfibrozil 600 mg Q12HR PO 10/27/24 10:00 10/31/24 21:59 600 MG Pantoprazole Sodium 40 mg DAILY IV 11/01/24 10:00 objective Alert and oriented x4 NC/AT EOMI PERRLA Regular rate and rhythm Soft non tender no masses, no rebound tenderness or guarding No clubbing cyanosis or edema laboratory and microbiology Laboratory Tests 10/29/24 05:43 Test 10/29/24 05:43 Range/Units Serum Glucose 80 74-106 mg/dL MRCP IMPRESSION: 1. Limited, incomplete examination. MRCP images were not able to be obtained. 2. Findings consistent with reported clinical history of acute pancreatitis as described above. 3. No biliary ductal dilatation. No gallstones visualized in the gallbladder. 4. Partially visualized right ovarian cyst as described above. Problems(with codes): (1) Acute pancreatitis (2) Gastroenteritis (3) Hypertriglyceridemia Prognosis Plan Unclear etiology of lactic acidosis and mild pancreatitis possibly related to acute food-borne illness andgastroenteritis Patient also has hypertriglyceridemia which could be a likely cause of her pancreatitis Patient's diet has been advanced to soft mechanical diet Continue to monitor labs including lipase and liver profile IV fluid hydration IV PPI;Hepatitis profile Currently on broad-spectrum antibiotics Patient has been started on Lopid 600 mg p.o. twice a day I will follow this patient with you Dietary Evaluation Review Recommendations by RD: Protein Supplementation Comments: 1) Initiate Ensure Clear qd. Encourage optimal PO intake 2) Advance to low-fat diet when medically feasible, pending speech therapy approval 3) Follow-up with gastroenterology 4) Continue to monitor I&O, labs, and skin integrity Expected Outcomes/Goals: 1) appetite and labs to improve 2) diet to advance 3) f/u in 2-3 day Plan discussed with: Other (Karissa Porter) JESSICA GARSIA MD Oct 31, 2024 22:32
[2024-11-01] VITALS (9 sets, daily range): BP systolic 98–110; BP diastolic 70–80; PULSE 78–99; RESP 16–18; TEMP 97.8–98.2; O2SAT 97–99
[2024-11-01 06:25] LABS: Amylase 164 U/L (30-118); Lipase 343 U/L (12-53)
[2024-11-01] MEDS: PANTOPRAZOLE 40 MG/10 ML VIAL INJ IV SCH (08:53)
--- NOTE | 2024-11-01 10:16 | DVHPN2 ---
Reviewed: Care Plan, H&P, Labs, Medications, Previous Orders, Radiology Changes from previous H/P or p: No Changes Gastrointestinal: Nausea, Vomiting, Abdominal Pain Objective Vitals Vital Signs Date Time Temp Pulse Resp B/P (MAP) Pulse Ox O2 Delivery O2 Flow Rate FiO2 11/01/24 09:00 98.2 78 16 98/71 (80) 97 98.2 10/31/24 20:00 Room Air* 0 21 Intake/Output Intake and Output 11/01/24 07:00 Intake Total 1750 ml Balance 1750 ml Intake Oral 1400 ml IV Total 350 ml # Voids 10 # Bowel Movements 1 Medications Current Medications Medications Dose Ordered Sig/Jose Route Start Time Stop Time Status Last Admin Dose Admin Ceftriaxone Sodium 50 ml @ 100 mls/hr DAILY@09 IV 10/27/24 09:00 11/01/24 08:59 100 MLS/HR Metronidazole 100 ml @ 100 mls/hr Q8HR IV 10/26/24 22:00 11/01/24 05:34 100 MLS/HR Ondansetron HCl 4 mg Q4HPRN PRN IV 10/26/24 16:15 10/27/24 17:28 4 MG Acetaminophen 650 mg Q4HP PRN PO 10/27/24 01:15 11/01/24 04:02 650 MG Gemfibrozil 600 mg Q12HR PO 10/27/24 10:00 11/01/24 09:14 600 MG Pantoprazole Sodium 40 mg DAILY IV 11/01/24 10:00 11/01/24 08:58 40 MG Laboratory Results Laboratory Tests 10/29/24 05:43 Lipid panel Test 10/31/24 10:41 11/01/24 05:26 Lipase 499 U/L (12-53) H 343 U/L (12-53) H Urinalysis Test 10/26/24 13:10 Urine Color Yellow (Yellow) Urine Clarity Clear (Clear) Urine pH 5.5 (5.0-9.0) Urine Specific [place] 1.027 (1.001-1.035) Urine Protein Negative (Negative) Urine Ketones Trace (Negative) Urine Blood Negative /uL (Negative) Urine Nitrite Negative (Negative) Urine Bilirubin Negative (Negative) Urine Urobilinogen Normal mg/dL (Negative) Urine Leukocyte Esterase Negative /uL (Negative) Urine RBC 2 /hpf (0 - 4) Urine Microscopic WBC 5 /HPF (0-5) Urine Squamous Epithelial Cells Few /hpf (<5) Urine Bacteria Few /hpf (None Seen) H Urine Glucose Normal mg/dL (Normal) Labs and/or images reviewed: Labs reviewed by me, Image(s) reviewed by me Assessment/Plan Assessment/Plan Systemic inflammatory response syndrome Acute abdominal pain Acute lactic acidosis Intractable nausea and vomiting CREWS Acute pancreatitis lipase 560; GI consult for Dr Osvaldo Loomis appreciated lipase is still elevated 512, MRCP ordered Hypertriglyceridemia: Lopid 600 mg p.o. b.i.d. Acute enterocolitis: Rocephin Flagyl Acute dehydration: IV fluid Possible food poisoning: Patient atre [employer] yesterday and symptoms developed later Patient feels better Start soft diet MRCP negative for any CBD stones or CBD dilatation Patient continues to have abdominal pain, consult by Dr. Valerie Arango appreciated Plan discussed with: Patient My Orders Orders - MARIBELL LOMAX MD Procedure Category Date Status Time * [facility] [employer] Senior Manager CONS 10/31/24 Transmitted 10:23 Pantoprazole PHA 11/01/24 In Process (Protonix) 10:00 Mechanical Soft Diet DIET 10/31/24 Transmitted Dinner Date of Service: Nov 01, 2024 Billing Provider: MARIBELL LOMAX MD Common Visit Codes: [id number] INP/OBS CARE(HIGH) MARIBELL LOMAX MD Nov 01, 2024 10:16
[2024-11-01 15:33] LABS: Albumin 3.4 g/dL (3.2-4.8); Total Protein 6.3 g/dL (5.7-8.2)
[2024-11-01 15:34] LABS: Bilirubin, Direct 0.3 mg/dL (<0.3); Bilirubin, Total 0.6 mg/dL (0.2-1.0)
--- NOTE | 2024-11-01 19:59 | DVHPN2 ---
Progress Note - Dictate Date Seen: Nov 01, 2024 Medical Necessity Reason Pt with a Central, PICC or Fol: No Subjective Patient was doing better today Abdominal pain improving; patient is tolerating a soft diet Mild persistent elevation in lipase trending down Liver enzymes Were recheck this afternoon and have normalized Note increase triglycerides over 600 patient does admit to recent increase alcohol intake due to graduation parties They also moved recently and she has been eating more fast foods and fatty foods vital signs Vital Sign Date Time Temp Pulse Resp B/P (MAP) Pulse Ox O2 Delivery O2 Flow Rate FiO2 11/01/24 17:00 98.2 78 16 98/71 (80) 97 98.2 11/01/24 08:00 Room Air* 0 21 Total Intake and Output 10/31/24 10/31/24 11/01/24 14:59 22:59 06:59 Intake Total 50 ml 200 ml 1500 ml Balance 50 ml 200 ml 1500 ml medications Current Medications Medications Dose Ordered Sig/Jose Route Start Time Stop Time Status Last Admin Dose Admin Ceftriaxone Sodium 50 ml @ 100 mls/hr DAILY@09 IV 10/27/24 09:00 11/01/24 08:59 100 MLS/HR Metronidazole 100 ml @ 100 mls/hr Q8HR IV 10/26/24 22:00 11/01/24 14:13 100 MLS/HR Ondansetron HCl 4 mg Q4HPRN PRN IV 10/26/24 16:15 10/27/24 17:28 4 MG Acetaminophen 650 mg Q4HP PRN PO 10/27/24 01:15 11/01/24 14:13 650 MG Gemfibrozil 600 mg Q12HR PO 10/27/24 10:00 11/01/24 09:14 600 MG Pantoprazole Sodium 40 mg DAILY IV 11/01/24 10:00 11/01/24 08:58 40 MG objective Alert and oriented x4 NC/AT EOMI PERRLA Regular rate and rhythm Soft non tender no masses, no rebound tenderness or guarding No clubbing cyanosis or edema laboratory and microbiology Laboratory Tests 10/29/24 05:43 Test 10/29/24 05:43 Range/Units Serum Glucose 80 74-106 mg/dL Problems(with codes): (1) Hypertriglyceridemia (2) Acute pancreatitis (3) Gastroenteritis Prognosis Plan Continue soft mechanical diet Continue to monitor labs [place] Protonix 40 mg p.o. daily Patient would like to get an endoscopy done to evaluate her nausea and vomiting and rule out any peptic ulcer disease She will be kept NPO after midnight for the same Dietary Evaluation Review Recommendations by RD: Protein Supplementation Comments: 1) Initiate Ensure Clear qd. Encourage optimal PO intake 2) Advance to low-fat diet when medically feasible, pending speech therapy approval 3) Follow-up with gastroenterology 4) Continue to monitor I&O, labs, and skin integrity Expected Outcomes/Goals: 1) appetite and labs to improve 2) diet to advance 3) f/u in 2-3 day Plan discussed with: Patient, Other (Nurse) JESSICA GARSIA MD Nov 01, 2024 19:59
[2024-11-02] VITALS (10 sets, daily range): BP systolic 96–113; BP diastolic 64–80; PULSE 77–112; RESP 16–20; TEMP 97–99; O2SAT 96–100
--- NOTE | 2024-11-02 09:23 | DVHPN2 ---
Reviewed: Care Plan, H&P, Labs, Medications, Previous Orders, Radiology Changes from previous H/P or p: No Changes Gastrointestinal: Nausea, Vomiting, Abdominal Pain Objective Vitals Vital Signs Date Time Temp Pulse Resp B/P (MAP) Pulse Ox O2 Delivery O2 Flow Rate FiO2 11/02/24 08:47 97.9 101 18 100/78 (85) 100 97.9 11/01/24 20:00 Room Air* 0 21 Intake/Output Intake and Output 11/02/24 07:00 Intake Total 2000 ml Balance 2000 ml Intake Oral 1850 ml IV Total 150 ml # Voids 7 # Bowel Movements 1 Medications Current Medications Medications Dose Ordered Sig/Jose Route Start Time Stop Time Status Last Admin Dose Admin Ceftriaxone Sodium 50 ml @ 100 mls/hr DAILY@09 IV 10/27/24 09:00 11/01/24 08:59 100 MLS/HR Ondansetron HCl 4 mg Q4HPRN PRN IV 10/26/24 16:15 10/27/24 17:28 4 MG Acetaminophen 650 mg Q4HP PRN PO 10/27/24 01:15 11/02/24 00:55 650 MG Gemfibrozil 600 mg Q12HR PO 10/27/24 10:00 11/01/24 09:14 600 MG Pantoprazole Sodium 40 mg DAILY IV 11/01/24 10:00 11/01/24 08:58 40 MG Laboratory Results Laboratory Tests 10/29/24 05:43 Lipid panel Test 11/02/24 05:06 Lipase 293 U/L (12-53) H Urinalysis Test 10/26/24 13:10 Urine Color Yellow (Yellow) Urine Clarity Clear (Clear) Urine pH 5.5 (5.0-9.0) Urine Specific [place] 1.027 (1.001-1.035) Urine Protein Negative (Negative) Urine Ketones Trace (Negative) Urine Blood Negative /uL (Negative) Urine Nitrite Negative (Negative) Urine Bilirubin Negative (Negative) Urine Urobilinogen Normal mg/dL (Negative) Urine Leukocyte Esterase Negative /uL (Negative) Urine RBC 2 /hpf (0 - 4) Urine Microscopic WBC 5 /HPF (0-5) Urine Squamous Epithelial Cells Few /hpf (<5) Urine Bacteria Few /hpf (None Seen) H Urine Glucose Normal mg/dL (Normal) Labs and/or images reviewed: Labs reviewed by me, Image(s) reviewed by me Assessment/Plan Assessment/Plan Systemic inflammatory response syndrome Acute abdominal pain Acute lactic acidosis Intractable nausea and vomiting CREWS Acute pancreatitis lipase 560; GI consult for Dr Osvaldo Loomis appreciated lipase is still elevated 512, MRCP ordered Hypertriglyceridemia: Lopid 600 mg p.o. b.i.d. Acute enterocolitis: Rocephin Flagyl Acute dehydration: IV fluid Possible food poisoning: Patient atre [employer] yesterday and symptoms developed later Patient feels better Start soft diet MRCP negative for any CBD stones or CBD dilatation Patient continues to have abdominal pain, consult by Dr. Valerie Arango appreciated Pt Getting EGD today Plan discussed with: Patient Date of Service: Nov 02, 2024 Billing Provider: MARIBELL LOMAX MD Common Visit Codes: [id number] INP/OBS CARE(HIGH) MARIBELL LOMAX MD Nov 02, 2024 09:23
[2024-11-02] MEDS ORDERED: SODIUM CHLORIDE LOCK 10 ML ONE (09:25)
[2024-11-02 10:43] LABS: Hepatitis B Core Total AB Negative (Negative)
[2024-11-02] MEDS: diphenhdrAMINE HCL 25 MG CAP PO PRN (10:43)
[2024-11-02 10:57] LABS: Hepatitis A Ab IgM Negative; Hepatitis A Total Antibody Positive (Negative); Hepatitis B Core IgM Negative (Negative); Hepatitis B Surface Antibody Positive (Negative); Hepatitis B Surface Antigen Negative (Negative); Hepatitis C Antibody Negative (Negative)
[2024-11-02] MEDS: LIDOCAINE VISCOUS 2% 15ML UD ONE (13:28)
[2024-11-02] MEDS: fentaNYL CITRATE 100 MCG/2 ML VL ONE (13:29)
[2024-11-02] MEDS: MIDAZOLAM HCL 5 MG/ML-1ML VIAL ONE (13:29)
[2024-11-02] MEDS: diphenhdrAMINE HCL 50 MG/1 ML VL ONE (13:29)
--- NOTE | 2024-11-02 13:43 | DVHOP2 ---
Operative Report DATE OF OPERATION: 11/02/24 PROCEDURE: Upper Endoscopy with biopsy. PREOPERATIVE INDICATION: The patient is a 34 -year-old female undergoing endoscopy for epigastric pain and nausea and vomiting POSTOPERATIVE DIAGNOSES: 1. Mild gastritis involving the antrum and body of the stomach PROCEDURE PERFORMED BY: Jessica Arango GI NURSE: Sona SCOPE: Olympus videoendoscope. ASA CLASS: 2 PREOPERATIVE MEDICATIONS: Versed 4 mg, Fentanyl 100 mcg, Benadryl 50 mg I administered moderate sedation throughout this _7_ minutes procedure. An independent trained observer pushed medications at my direction, and monitored the patient's level of consciousness and physiological status throughout. PROCEDURE IN DETAIL: After obtaining an informed consent, the patient was placed on left lateral decubitus position. The patient was then sedated with the above medications. A bite block was placed between her teeth. The endoscope was then passed through the oropharynx, into the esophagus, and through the stomach and pylorus up to the second part of the duodenum. The endoscope was then withdrawn. The duodenal bulb and 2nd part of the duodenal was normal. Duodenal biopsies were obtained The pre-pyloric area antrum and body showed mild gastritis with some hyperemia and erythema. Gastric biopsies were obtained. On retroflexion the fundus and cardia and angularis were normal The endoscope was then withdrawn into distal esophagus where the patient had a slightly irregular squamocolumnar junction There was no significant hiatal hernia or esophagitis. The remaining distal and proximal esophagus and oropharynx were unremarkable The patient tolerated the procedure well without difficulty. COMPLICATIONS : None SPECIMENS: Duodenal biopsies Gastric biopsies DISPOSITION: Transfer back to the floor Stable PLAN: 1. Await for biopsy result 2. Will place pt on Protonix 20 mg p.o. daily 3. DC aspirin NSAIDs smoking alcohol 4. Resume GI soft diet advance as tolerated 5. Outpatient follow up with me in 4-6 weeks to review results and discuss further management JESSICA ARANGO MD Nov 02, 2024 13:43
[2024-11-03 01:00] VITALS: BP 95/64; PULSE 102; RESP 17; TEMP 97; O2SAT 97
[2024-11-03 05:00] VITALS: BP 97/68; PULSE 89; RESP 17; TEMP 96.9; O2SAT 97
[2024-11-03 08:05] VITALS: RESP 16
[2024-11-03 08:35] VITALS: BP 103/78; PULSE 78; RESP 21; TEMP 96.5; O2SAT 98
--- NOTE | 2024-11-03 09:13 | DVHPN2 ---
Reviewed: Care Plan, H&P, Labs, Medications, Previous Orders, Radiology Changes from previous H/P or p: No Changes Gastrointestinal: Nausea, Vomiting, Abdominal Pain Objective Vitals Vital Signs Date Time Temp Pulse Resp B/P (MAP) Pulse Ox O2 Delivery O2 Flow Rate FiO2 11/03/24 08:35 96.5 78 21 103/78 (86) 98 96.5 11/03/24 08:05 Room Air* 0 21 Intake/Output Intake and Output 11/03/24 07:00 Intake Total 1575 ml Balance 1575 ml Intake Oral 1475 ml IV Total 100 ml # Voids 11 # Bowel Movements 4 Medications Current Medications Medications Dose Ordered Sig/Jose Route Start Time Stop Time Status Last Admin Dose Admin Ceftriaxone Sodium 50 ml @ 100 mls/hr DAILY@09 IV 10/27/24 09:00 11/03/24 08:55 100 MLS/HR Ondansetron HCl 4 mg Q4HPRN PRN IV 10/26/24 16:15 10/27/24 17:28 4 MG Acetaminophen 650 mg Q4HP PRN PO 10/27/24 01:15 11/03/24 03:46 650 MG Gemfibrozil 600 mg Q12HR PO 10/27/24 10:00 11/03/24 08:54 600 MG Pantoprazole Sodium 40 mg DAILY IV 11/01/24 10:00 11/03/24 08:55 40 MG Diphenhydramine HCl 25 mg Q8HP PRN PO 11/02/24 09:30 11/03/24 09:04 25 MG Laboratory Results Laboratory Tests 10/29/24 05:43 Urinalysis Test 10/26/24 13:10 Urine Color Yellow (Yellow) Urine Clarity Clear (Clear) Urine pH 5.5 (5.0-9.0) Urine Specific [place] 1.027 (1.001-1.035) Urine Protein Negative (Negative) Urine Ketones Trace (Negative) Urine Blood Negative /uL (Negative) Urine Nitrite Negative (Negative) Urine Bilirubin Negative (Negative) Urine Urobilinogen Normal mg/dL (Negative) Urine Leukocyte Esterase Negative /uL (Negative) Urine RBC 2 /hpf (0 - 4) Urine Microscopic WBC 5 /HPF (0-5) Urine Squamous Epithelial Cells Few /hpf (<5) Urine Bacteria Few /hpf (None Seen) H Urine Glucose Normal mg/dL (Normal) Labs and/or images reviewed: Labs reviewed by me, Image(s) reviewed by me Assessment/Plan Assessment/Plan Systemic inflammatory response syndrome Acute abdominal pain Acute lactic acidosis Intractable nausea and vomiting resolved CREWS Acute pancreatitis lipase 560; lipase trending down Hypertriglyceridemia: Lopid 600 mg p.o. b.i.d. Acute enterocolitis: Rocephin Flagyl Acute dehydration: IV fluid Possible food poisoning: Patient atre [employer] yesterday and symptoms developed later Patient feels better Start soft diet MRCP negative for any CBD stones or CBD dilatation Patient continues to have abdominal pain, consult by Dr. Valerie Arango appreciated Mild Gastritis by EGD by Dr. Valerie Arango advised pantoprazole Patient feels better with no pain and wants to go home Plan discussed with: Patient My Orders Orders - MARIBELL LOMAX MD Procedure Category Date Status Time Diphenhdramine PHA 11/02/24 In Process Capsule (Benadryl 09:30 Date of Service: Nov 03, 2024 Billing Provider: MARIBELL LOMAX MD Common Visit Codes: [id number] INP/OBS CARE(HIGH) MARIBELL LOMAX MD Nov 03, 2024 09:13
--- NOTE | 2024-11-03 09:16 | DVHDS2 ---
Discharge Summary Date of Admission October 26, 2024 at 16:10 Date of Discharge: Nov 03, 2024 Admitting Diagnosis Abdominal pain nausea and vomiting Wounds: EGD Labs/Diagnostic Data: Laboratory Results Test 11/02/24 05:06 11/01/24 05:26 10/29/24 05:43 10/27/24 12:42 Lipase 293 U/L (12-53) Beta HCG, Quantitative 0.5 mIU/mL (1.5-4.2) Total Bilirubin 0.6 mg/dL (0.2-1.0) Direct Bilirubin 0.3 mg/dL (<0.3) Aspartate Amino Transferase (AST) 24 U/L (13-40) Alanine Aminotransferase (ALT) 22 U/L (7-40) Alkaline Phosphatase 100 U/L (46-116) Total Protein 6.3 g/dL (5.7-8.2) Albumin 3.4 g/dL (3.2-4.8) Amylase Level 164 U/L (30-118) Anti-Nuclear Antibody Screen Negative (Negative) Hepatitis A IgM Antibody Negative Hepatitis A Antibody Total Positive (Negative) Hepatitis B Surface Antigen Negative (Negative) Hepatitis B Surface Antibody Positive (Negative) Hepatitis B Core Total Antibody Negative (Negative) Hepatitis B Core IgM Antibody Negative (Negative) Hepatitis C Antibody Negative (Negative) White Blood Count 6.3 10^3/uL (4.4-10.8) Red Blood Count 3.30 10^6/uL (4.0-5.20) Hemoglobin 12.0 g/dL (12.2-16.2) Hematocrit 34.7 % (36.0-46.0) Mean Corpuscular Volume 105.4 fL (80.0-100.0) Mean Corpuscular Hemoglobin 36.5 pg (28.0-32.0) Mean Corpuscular Hemoglobin Concent 34.7 g/dL (32.0-36.0) Red Cell Distribution Width 14.8 % (11.8-14.3) Platelet Count 128 10^3/uL (140-450) Mean Platelet Volume 8.4 fL (6.9-10.8) Neutrophils (%) (Auto) 74.2 % (37.0-80.0) Lymphocytes (%) (Auto) 12.7 % (10.0-50.0) Monocytes (%) (Auto) 10.8 % (0.0-12.0) Eosinophils (%) (Auto) 1.7 % (0.0-7.0) Basophils (%) (Auto) 0.6 % (0.0-2.0) Neutrophils # (Auto) 4.7 10 ^3/uL (1.6-8.6) Lymphocytes # (Auto) 0.8 10 ^3/uL (0.4-5.4) Monocytes # (Auto) 0.7 10 ^3/uL (0-1.3) Eosinophils # (Auto) 0.1 10 ^3/uL (0-0.8) Basophils # (Auto) 0 10 ^3/uL (0-0.2) Nucleated Red Blood Cells 0.1 % Sodium Level 138 mmol/L (136-145) Potassium Level 3.3 mmol/L (3.5-5.1) Chloride Level 106 mmol/L (98-107) Carbon Dioxide Level 20 mmol/L (20-31) Anion Gap 12 (5-15) Blood Urea Nitrogen < 5 mg/dL (9-23) Creatinine 0.60 mg/dL (0.550-1.02) Glomerular Filtration Rate Calc 121 mL/min (>90) BUN/Creatinine Ratio 8.3 (10.0-20.0) Serum Glucose 80 mg/dL (74-106) Calcium Level 8.9 mg/dL (8.7-10.4) Lactic Acid Level 2.2 mmol/L (0.4-2.0) Test 10/26/24 23:30 10/26/24 17:35 10/26/24 13:15 10/26/24 13:10 Influenza Type A Antigen Negative (Negative) Influenza Type B Antigen Negative (Negative) SARS-CoV-2 Antigen (Rapid) Negative (NEGATIVE) Triglycerides Level 693 mg/dL (< 150) Cholesterol Level 102 mg/dL (< 200) LDL Cholesterol mg/dL (< 100) HDL Cholesterol 34 mg/dL (40-59) Plasma/Serum Blood Alcohol 5.6 mg/dL (<10) Prothrombin Time 12.8 sec (9.3-11.8) Prothrombin Time INR 1.23 (0.9-1.15) Activated Partial Thromboplast Time 25.1 SEC (24.5-34.5) Hemoglobin A1c 4.9 % A1C (<5.7) Magnesium Level 1.7 mg/dL (1.6-2.6) Vitamin B12 Level 762 pg/mL (211-911) Vitamin D 25-Hydroxy 44.5 ng/mL (30.0-100) Thyroid Stimulating Hormone (TSH) 2.28 uIU/mL (0.55-4.78) Urine Color Yellow (Yellow) Urine Clarity Clear (Clear) Urine pH 5.5 (5.0-9.0) Urine Specific [place] 1.027 (1.001-1.035) Urine Protein Negative (Negative) Urine Ketones Trace (Negative) Urine Blood Negative /uL (Negative) Urine Nitrite Negative (Negative) Urine Bilirubin Negative (Negative) Urine Urobilinogen Normal mg/dL (Negative) Urine Leukocyte Esterase Negative /uL (Negative) Urine RBC 2 /hpf (0 - 4) Urine Microscopic WBC 5 /HPF (0-5) Urine Squamous Epithelial Cells Few /hpf (<5) Urine Bacteria Few /hpf (None Seen) Urine Glucose Normal mg/dL (Normal) Urine Opiates Screen Neg (NEGATIVE) Urine Fentanyl Screen Neg (NEGATIVE) Urine Barbiturates Screen Neg (NEGATIVE) Urine Phencyclidine Screen Neg (NEGATIVE) Urine Amphetamines Screen Neg (NEGATIVE) Urine Benzodiazepines Screen Neg (NEGATIVE) Urine Cocaine Screen Neg (NEGATIVE) Urine Cannabinoids Screen Neg (NEGATIVE) Other Laboratory Tests 10/29/24 05:43 Brief Hx & Hospital Course: 34-year-old female with no previous medical history atrial at [facility] [place] and came in complaining of abdominal pain nausea and vomiting. CT abdomen pelvis without contrast showed possible colitis treated with Rocephin and Flagyl patient also had a hypertriglyceridemia started on Lopid 600 mg p.o. b.i.d. mild pancreatitis with a lipase 560 which is trending down EGD by Dr. Arango showed mild gastritis placed on pantoprazole MRCP negative for any CBD stones or CBD dilatation. Patient feels better without any pain four with a stable vital signs and tolerating regular diet being discharged home. Prescription for pantoprazole Flagyl and Lopid transmitted to the pharmacy. Consults/Reason for consult GI Dr. Valerie Arango Operations or Procedures EGD CT abdomen pelvis without contrast Condition at Discharge: Fair Final Diagnosis/Problems List Systemic inflammatory response syndrome Acute abdominal pain Acute lactic acidosis Intractable nausea and vomiting resolved CREWS Acute pancreatitis lipase 560; lipase trending down Hypertriglyceridemia: Lopid 600 mg p.o. b.i.d. Acute enterocolitis: Rocephin Flagyl Acute dehydration: IV fluid Possible food poisoning: Patient scott [place] yesterday and symptoms developed later Patient feels better Start soft diet MRCP negative for any CBD stones or CBD dilatation Patient continues to have abdominal pain, consult by Dr. Valerie Arango appreciated Mild Gastritis by EGD by Dr. Valerie Arango advised pantoprazole Patient feels better with no pain and wants to go home Discharge Disposition: Home Discharge Instruct/Medications Diet: Regular Activity: Light activity Follow Up/Referral: Follow up with the GI Dr. Valerie Arango in two weeks Medications: Pantoprazole Flagyl Transmitted to pharmacy 39 (Time taken for discharge summary 39 minutes) Discharge Statement: "Patient was advised to return to the ER or call 911 if any headaches, dizziness, shortness of breath, chest pain, abdominal pain, bleeding, fevers, or worsening of medical condition. Patient was counseled about treatment plan, medications, possible side effects, patientverbalized understanding. All questions were answered to the best of my ability. This discharge took greater then 30 minutes in planning, reviewing documentation, counseling the patient, and discussing with other team members." ASSESSMENT ASSESSMENT Hospital Course Improved Assessment Systemic inflammatory response syndrome Acute abdominal pain Acute lactic acidosis Intractable nausea and vomiting resolved CREWS Acute pancreatitis lipase 560; lipase trending down Hypertriglyceridemia: Lopid 600 mg p.o. b.i.d. Acute enterocolitis: Rocephin Flagyl Acute dehydration: IV fluid Possible food poisoning: Patient scott [place] yesterday and symptoms developed later Patient feels better Start soft diet MRCP negative for any CBD stones or CBD dilatation Patient continues to have abdominal pain, consult by Dr. Valerie Arango appreciated Mild Gastritis by EGD by Dr. Valerie Arango advised pantoprazole Patient feels better with no pain and wants to go home Date of Service: Nov 03, 2024 Billing Provider: MARIBELL LOMAX MD Common Visit Codes: [id number] DISCH DAY >30min MARIBELL LOMAX MD Nov 03, 2024 09:16
[2024-11-03] MEDS ORDERED: GEMF600T PO (09:17)
[2024-11-03] MEDS ORDERED: PANT40T PO (09:17)
[2024-11-03] MEDS ORDERED: METR-344 PO (09:17)
--- NOTE | 2024-11-03 23:00 | DVHPN2 ---
Progress Note - Dictate Date Seen: Nov 03, 2024 (Late entry Time of visit 12 noon) Medical Necessity Reason Pt with a Central, PICC or Fol: No Subjective Patient was doing better today Abdominal pain improving; patient is tolerating a soft diet Lipase down to 293 Liver enzymes have normalized EGD showed mild gastritis patient does admit to recent increase alcohol intake due to graduation parties They also moved recently and she has been eating more fast foods and fatty foods vital signs Vital Sign Date Time Temp Pulse Resp B/P (MAP) Pulse Ox O2 Delivery O2 Flow Rate FiO2 11/03/24 08:35 96.5 78 21 103/78 (86) 98 96.5 11/03/24 08:05 Room Air* 0 21 Total Intake and Output 11/02/24 11/02/24 11/03/24 15:00 23:00 07:00 Intake Total 150 ml 800 ml 675 ml Balance 150 ml 800 ml 675 ml objective Alert and oriented x4 NC/AT EOMI PERRLA Regular rate and rhythm Soft non tender no masses, no rebound tenderness or guarding No clubbing cyanosis or edema laboratory and microbiology Laboratory Tests 10/29/24 05:43 Test 10/29/24 05:43 Range/Units Serum Glucose 80 74-106 mg/dL Problems(with codes): (1) Gastritis (2) Hypertriglyceridemia (3) Acute pancreatitis (4) Gastroenteritis Prognosis Plan EGD findings reviewed with the patient Counseled to discontinue alcohol and fatty foods Maintained on a PPI ; monitor labs Discharge planning is in progress for today Outpatient follow up with me in 2-4 weeks to review results of pathology and discuss further management Dietary Evaluation Review Recommendations by RD: Protein Supplementation Comments: 1) Initiate Ensure Clear qd. Encourage optimal PO intake 2) Advance to low-fat diet when medically feasible, pending speech therapy approval 3) Follow-up with gastroenterology 4) Continue to monitor I&O, labs, and skin integrity Expected Outcomes/Goals: 1) appetite and labs to improve 2) diet to advance 3) f/u in 2-3 day Plan discussed with: Patient JESSICA GARSIA MD Nov 03, 2024 23:00
== END 2024-11-03 13:20 | disposition home or self-care (01) | DRG 241 ==
LOC: ER 13:00 → OVERFLOW 16:10 → EAST 10-27 15:50
PROVIDERS: ADMIT Family Medicine; ATTEND Family Medicine
PROC: 0DB68ZX Excision of Stomach, Via Natural or Artificial Opening Endoscopic, Diagnostic (ICD-10-PCS; 2024-11-02)
PROC: 0DB98ZX Excision of Duodenum, Via Natural or Artificial Opening Endoscopic, Diagnostic (ICD-10-PCS; principal; 2024-11-02 13:25)
DX: K29.70 Gastritis, unspecified, without bleeding (principal); R65.11 Systemic inflammatory response syndrome (SIRS) of non-infectious origin with acute organ dysfunction; K85.90 Acute pancreatitis without necrosis or infection, unspecified; E87.21 Acute metabolic acidosis; K75.81 Nonalcoholic steatohepatitis (NASH); A09 Infectious gastroenteritis and colitis, unspecified; E86.0 Dehydration; A05.9 Bacterial foodborne intoxication, unspecified; E78.1 Pure hyperglyceridemia; R74.8 Abnormal levels of other serum enzymes; Z20.822 Contact with and (suspected) exposure to COVID-19; Z82.49 Family history of ischemic heart disease and other diseases of the circulatory system
CPT/HCPCS: 36415; 43239; 74176; 74181; 76700; 80053; 80061; 80074; 80076; 80307; 80320; 81001; 82150; 82306; 82607; 83036; 83605; 83690; 83735; 84443; 84702; 85025; 85610; 85730; 86038; 86704; 86706; 86708; 86803; 87340; 87426; 87804; 96361; 96374; G0378; J2250; J2405; J2470; J3480; J3490

== ENCOUNTER 2025-04-18 08:07 | Inpatient (IN) | payer MEDICAID ==
[~2025-04-18] VITALS: Ht 157.5 cm; Wt 56.8 kg
[~2025-04-18 08:07] MED LIST: GEMF600T PO; METR-344 PO; PANT40T PO; ZOFR4T PO
[2025-04-18] MEDS: PANTOPRAZOLE 40 MG/10 ML VIAL INJ IV ONE (08:30)
[2025-04-18] MEDS: MORPHINE SULFATE 4 MG/ML SYR/VIAL IV ONE (08:30)
[2025-04-18] MEDS: ONDANSETRON HCL 4 MG/2 ML VIAL IV ONE (08:30)
--- NOTE | 2025-04-18 08:34 | ED.PDOC ---
GI ASSESSMENT HPI Comments 35-year-old female PMHx Pancreatitis, Gastritis, who presents to the ED with a chief complaint of abdominal pain onset 2 days. Patient states she has been experiencing epigastric pain that radiates to her back for the past 2 days. Patient was hospitalized June 2024 due to pancreatitis, gastritis. Patient states she had a few drinks over the weekend, was eating greasy food. She is currently experiencing nausea as well, rates pain 8/10. Denies vomiting, diarrhea, constipation, dysuria, hematuria, hematemesis, fever, chills, chest pain, shortness of breath, headache, dizziness, weakness. No other symptoms or modifying factors present at this time. Chief Complaint: Abdominal Pain Time Seen by MD: 08:25 Primary Care Provider: ? Reviewed Notes: Medications, Allergies Allergies: Coded Allergies: NO KNOWN ALLERGIES (Unverified , 10/26/24) Home Meds Active Scripts Metronidazole (Flagyl) 500 Mg Tab, 1 TAB PO TID, #30 TAB Prov:MARIBELL LOMAX MD 11/03/24 Gemfibrozil (Lopid) 600 Mg Tab, 1 TAB PO BID, #60 TAB 5 Refills Prov:MARIBELL LOMAX MD 11/03/24 Pantoprazole Sodium Sesquihydr (Pantoprazole Sodium) 40 Mg Tab, 40 MG PO DAILY, #30 TAB Prov:MARIBELL LOMAX MD 11/03/24 Ondansetron Odt 4MG Tab (ZOFRAN PO) 4 Mg Tb, 4 MG PO DAILY for 5 Days, #5 TAB ODT TAB-DISSOLVE IN MOUTH, THEN SWALLOW Prov:ALIZE BHATT MD 10/26/24 Information Source: Patient Mode of Arrival: Ambulatory Timing: Days Duration: Since onset Prehospital treatment: None Quality: Sharp Vomitus: None Severity: Moderate Recent: Ingestion of ETOH Recent Hx of: None Pain Location: Epigastric Modifying Factors: Nothing Associated sign and symptoms: Nausea, Abdominal Pain Past Medical History PAST MEDICAL HISTORY: GERD Past Medical History (Other): pancreatitis Surgical History: Denies all surgeries 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: 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 all 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 Hx Family History Family History: Unknown, Family hx of DM, Family hx of HTN Social History Smoker: Non-Smoker Alcohol: Occasionally Drugs: Denies Drug Use Lives In: Home Constitutional: denies: chills, diaphoresis, fatigue, fever, malaise, sweats, weakness, others EENTM: denies: blurred vision, double vision, ear bleeding, ear discharge, ear drainage, ear pain, ear ringing, eye pain, eye redness, hearing loss, mouth pain, mouth swelling, nasal discharge, nose bleeding, nose congestion, nose pain, photophobia, tearing, throat pain, throat swelling, voice changes, others Respiratory: denies: cough, hemoptysis, orthopnea, SOB at rest, shortness of breath, SOB with excertion, stridor, wheezing, others Cardiovascular: denies: chest pain, dizzy spells, diaphoresis, Dyspnea on exertion, edema, irregular heart beat, left arm pain, lightheadedness, palpitations, PND, syncope, others Gastrointestinal: reports: abdominal pain, nausea; denies: abdomen distended, blood streaked bowels, constipated, diarrhea, dysphagia, difficulty swallowing, hematemesis, melena, poor appetite, poor fluid intake, rectal bleeding, rectal pain, vomiting, others Genitourinary: denies: abnormal vagina bleeding, burning, dyspareunia, dysuria, flank pain, frequency, hematuria, incontinence, pain, , vagina discharge, urgency, others Neurological: denies: dizziness, fainting, headache, left sided numbness, left sided weakness, numbness, paresthesia, pre-existing deficit, right sided numbness, right sided weakness, seizure, speech problems, tingling, tremors, weakness, others Musculoskeletal: denies: back pain, gout, joint pain, joint swelling, muscle pain, muscle stiffness, neck pain, others Integumetry: denies: bruises, change in color, change in hair/nails, dryness, laceration, lesions, lumps, rash, wounds, others Allergic/Immunocompromised: denies: Difficulty Healing, Frequent Infections, Hives, Itching, others Hematologic/Lymphatic: denies: anemia, blood clots, easy bleeding, easy bruising, swollen glands, others Endocrine: denies: excessive hunger, excessive sweating, excessive thirst, excessive urination, flushing, intolerance to cold, intolerance to heat, unexplained weight gain, unexplained weight loss, others Psychiatric: denies: anxiety, bipolar disorder, depression, hopeless, panic disorder, schizophrenia, sleepless, suicidal, others All Other Systems: Reviewed and Negative Physical Exam General Appearance: Moderate Distress, Thin HEENT: Normal ENT Inspection, Pharynx Normal, TMs Normal Neck: Full Range of Motion, Non-Tender, Normal, Normal Inspection Respiratory: Chest Non-Tender, Lungs Clear, No Accessory Muscle Use, No Respiratory Distress, Normal Breath Sounds Cardiovascular: No Edema, No JVD, No Murmur, No Gallop, Normal Peripheral Pulses, Regular Rate/Rhythm Breast Exam: Deferred Gastrointestinal: Epigastric, No Organomegaly, No Pulsatile Mass, Normal Bowel Sounds, Soft, Tenderness Genitalia: Deferred Pelvic: Deferred Rectal: Deferred Extremities: No calf tenderness, Normal capillary refill, Normal inspection, Normal range of motion, Non-tender, No pedal edema Musculoskeletal : Apperance: Normal Neurologic: Alert, deputy fire marshal II-XII nml as Tested, No Motor Deficits, Normal Affect, Normal Mood, No Sensory Deficits Cerebellar Function: Normal Reflexes: Normal Skin: Dry, Normal Color, Warm Lymphatic: No Adenopathy Was a procedure done? Was a procedure done?: No GI differential Dx Differential Diagnosis: Gastritis/PUD, Gastroenteritis, Inflammatory BD, Pancreatitis, Electrolyte Imbalance, Food Poisoning X-Ray, Labs, Meds, VS Vital Signs Date Time Temp Pulse Resp B/P (MAP) Pulse Ox O2 Delivery O2 Flow Rate FiO2 04/18/25 09:56 97.9 107 18 117/95 (102) 100 97.9 04/18/25 09:56 107 18 100 Room Air 04/18/25 08:13 97.6 116 16 117/85 100 97.6 Lab Test 04/18/25 09:31 04/18/25 08:36 Range/Units Urine Color Light-orange Yellow Urine Clarity Clear Clear Urine pH 8.0 5.0-9.0 Urine Specific [place] 1.037 H 1.001-1.035 Urine Protein 1+ H Negative Urine Ketones Negative Negative Urine Blood Negative Negative /uL Urine Nitrite Negative Negative Urine Bilirubin Negative Negative Urine Urobilinogen 2 H Negative mg/dL Urine Leukocyte Esterase 1+ Negative /uL Urine RBC 2 0 - 4 /hpf Urine Microscopic WBC 16 H 0-5 /HPF Urine Squamous Epithelial Cells Mod <5 /hpf Urine Bacteria None seen None Seen /hpf Urine Glucose Normal Normal mg/dL Urine Test Negative Negative White Blood Count 5.0 4.4-10.8 10^3/uL Red Blood Count 4.02 4.0-5.20 10^6/uL Hemoglobin 14.0 12.2-16.2 g/dL Hematocrit 40.4 36.0-46.0 % Mean Corpuscular Volume 100.7 H 80.0-100.0 fL Mean Corpuscular Hemoglobin 34.8 H 28.0-32.0 pg Mean Corpuscular Hemoglobin Concent 34.6 32.0-36.0 g/dL Red Cell Distribution Width 19.4 H 11.8-14.3 % Platelet Count 217 140-450 10^3/uL Mean Platelet Volume 7.4 6.9-10.8 fL Neutrophils (%) (Auto) 68.0 37.0-80.0 % Lymphocytes (%) (Auto) 20.5 10.0-50.0 % Monocytes (%) (Auto) 10.1 0.0-12.0 % Eosinophils (%) (Auto) 0.4 0.0-7.0 % Basophils (%) (Auto) 1.0 0.0-2.0 % Neutrophils # (Auto) 3.4 1.6-8.6 10 ^3/uL Lymphocytes # (Auto) 1.0 0.4-5.4 10 ^3/uL Monocytes # (Auto) 0.5 0-1.3 10 ^3/uL Eosinophils # (Auto) 0 0-0.8 10 ^3/uL Basophils # (Auto) 0.1 0-0.2 10 ^3/uL Nucleated Red Blood Cells 0.2 % Sodium Level 136 136-145 mmol/L Potassium Level 2.9 L 3.5-5.1 mmol/L Chloride Level 95 L 98-107 mmol/L Carbon Dioxide Level 27 20-31 mmol/L Anion Gap 14 5-15 Blood Urea Nitrogen 7 L 9-23 mg/dL Creatinine 0.81 0.550-1.02 mg/dL Glomerular Filtration Rate Calc 97 >90 mL/min BUN/Creatinine Ratio 8.6 L 10.0-20.0 Serum Glucose 100 74-106 mg/dL Calcium Level 9.3 8.7-10.4 mg/dL Total Bilirubin 2.1 H 0.2-1.0 mg/dL Aspartate Amino Transferase (AST) 49 H 13-40 U/L Alanine Aminotransferase (ALT) 21 7-40 U/L Alkaline Phosphatase 85 46-116 U/L Total Protein 8.8 H 5.7-8.2 g/dL Albumin 4.7 3.2-4.8 g/dL Lipase 329 H 12-53 U/L Current Medications Medications (Trade) Dose Ordered Sig/Jose Route Start Time Stop Time Status Last Admin Sodium Chloride 1,000 ml @ 1,000 mls/hr Q1H ONCE IVB 04/18/25 08:30 04/18/25 09:29 DC 04/18/25 10:30 IV Hep-Lock was established The patient was given 1 L bolus of normal saline The patient's lipase is elevated at 329 The patient's CBC and the chemistry panel are within normal limits except for potassium of 2.9 and a chloride of 95 The patient is being given potassium IV The patient also has a UTI which she is being given Rocephin The patient is being admitted at this time. Time of 1ST Reevaluation: 08:55 Reevaluation 1ST: Unchanged Patient Education/Counseling: Diagnosis, Treatment, Prognosis Family Education/Counseling: No Family Present SEPSIS Sepsis Screen Date sepsis recognized/suspect: Apr 18, 2025 Time Sepsis recognized/suspect: 814 Recent Procedure: No On Antibiotic Therapy: No Respiratory Rate >20: No Heart Rate >90: Yes Temp<36 C (96.8 F) or >38.3 C: No SBP <90 or MAP <65 mmHG: No New Acute Mental Status Change: No Is the patient on CPAP, BIPAP,: No Physician Orders Heplock Iv (04/18/25 08:29) Housing Manager (04/18/25 08:29) Blood Pressure (04/18/25 08:29) Pulse Oximetry (04/18/25 08:29) Vital Signs Date Time Temp Pulse Resp B/P (MAP) Pulse Ox O2 Delivery O2 Flow Rate FiO2 04/18/25 09:56 97.9 107 18 117/95 (102) 100 97.9 04/18/25 09:56 107 18 100 Room Air 04/18/25 08:13 97.6 116 16 117/85 100 97.6 Laboratory Tests Test 04/18/25 08:36 White Blood Count 5.0 10^3/uL (4.4-10.8) Medications Medications Dose Ordered Sig/Jose Route Start Time Stop Time Status Last Admin Dose Admin Sodium Chloride 1,000 ml @ 1,000 mls/hr Q1H ONCE IVB 04/18/25 08:30 04/18/25 09:29 DC 04/18/25 10:30 Departure 1 Departure Time of Disposition: 10:37 Impression: Primary Impression: Acute pancreatitis Qualified Codes: K85.20 - Alcohol induced acute pancreatitis without necrosis or infection Additional Impression: Intractable vomiting Disposition: ADMITTED INPATIENT Admit to: Med Surg Condition: Fair Critical Care Note Critical Care Time?: No Stability Stability form required: No Heart Score Heart Score: Heart Score Response (Comments) Value History N/A 0 EKG N/A 0 Age N/A 0 Risk Factors N/A 0 Troponin N/A 0 Total 0 I personally scribed for LENY CUEVAS MD ([email or web address]) on 04/18/25 at 08:34. Electronically submitted by Ladan Perry ([email or web address]). LENY CUEVAS MD Apr 18, 2025 08:34
[2025-04-18 08:58] LABS: Hematocrit 40.4 % (36.0-46.0); Hemoglobin 14.0 g/dL (12.2-16.2); Mean Corpuscular Hemoglobin 34.8 pg (28.0-32.0); Mean Corpuscular Volume 100.7 fL (80.0-100.0); Nucleated Red Blood Cells % 0.2 %
[2025-04-18 09:16] LABS: Alanine Aminotransferase 21 U/L (7-40); Albumin 4.7 g/dL (3.2-4.8); Alkaline Phosphatase 85 U/L (46-116); Anion Gap 14 (5-15); BUN/Creatinine Ratio 8.6 (10.0-20.0); Calcium 9.3 mg/dL (8.7-10.4); Carbon Dioxide 27 mmol/L (20-31); Glucose 100 mg/dL (74-106)
[2025-04-18 09:17] LABS: Bilirubin, Total 2.1 mg/dL (0.2-1.0); Blood Urea Nitrogen 7 mg/dL (9-23); Chloride 95 mmol/L (98-107); Lipase 329 U/L (12-53); Potassium 2.9 mmol/L (3.5-5.1); Sodium 136 mmol/L (136-145); Total Protein 8.8 g/dL (5.7-8.2)
[2025-04-18 10:08] LABS: Urine Protein, UAD 1+ (Negative)
[2025-04-18] MEDS: SODIUM CHLORIDE 0.9% 1,000 ML IVB ONE (10:30)
--- NOTE | 2025-04-18 14:11 | DVHHPRES ---
History of Present Illness Resident Creating Document: DAVEY CASTRO History of Present Illness Sarita Eisenberg is a 35-year-old female patient who presents to the ED with chief complaint of sharp epigastric pain which radiates towards left upper quadrant and umbilical area which started at 8:00 p.m. on 04/17/2025 associated with nausea, sweats and polydipsia. Patient does report unintentional weight loss of 6 lb in appearance three months. Patient was previously diagnosed with pancreatitis in September 2024 where she was indicated a bland diet, and avoid fatty foods. Patient has been avoiding fatty foods and alcohol until past plan of couple weeks where she reports drinking nine white claws in the past two weekends. Patient believes that her diet triggered her symptoms. Denies any other associated symptom. Past medical history: Hypertension, anemia and leukopenia status post bone marrow biopsy which was within normal limits. Pancreatitis in September 2024, gastritis, Surgical history: Bone marrow biopsy , History: Father had heart disease. Grandmother had diabetes, mom had hypertension dyslipidemia Social history: Lives in [place] with family (next of kin is mother). Occasional binge drinking in the weekends (the past two weekend she drank nine white cause during the weekend). Denies current tobacco, alcohol and other drug abuse Allergies: Seasonal Home medication: Him hit herself, pantoprazole, Zofran Patient seen and examined at bedside. Currently has no new complaints. Patient admitted for further evaluation. Past Medical History Per HPI Past Surgical History Per HPI Family History Per HPI Past Social History Per HPI Review of Systems Review of Systems Per HPI Allergies: Coded Allergies: NO KNOWN ALLERGIES (Unverified , 10/26/24) Exam Vital Signs Vital Signs Date Time Temp Pulse Resp B/P (MAP) Pulse Ox O2 Delivery O2 Flow Rate FiO2 04/18/25 13:42 97.9 102 16 114/68 (83) 99 97.9 04/18/25 09:56 Room Air Exam Patient lying in bed, in no acute distress General: Lucid, afebrile, mucosae are moist Cardiovascular: Normal S1 and S2. No murmurs, gallops or rubs Respiratory: Normal ventilation mechanics. Clear lung sounds on auscultation Abdomen: Soft, tenderness in epigastric and left upper quadrant area, rest of abdomen nontender, no organomegaly, normal bowel sounds MSK/skin: Mobilizes 4 limbs. Skin is dry and warm Neurological: Oriented in 3 spheres. No motor no sensitive deficits. Pupils are isocoric and reactive Labs/Xrays Labs Test 04/18/25 09:31 04/18/25 08:36 Range/Units Urine Color Light-orange Yellow Urine Clarity Clear Clear Urine pH 8.0 5.0-9.0 Urine Specific [place] 1.037 H 1.001-1.035 Urine Protein 1+ H Negative Urine Ketones Negative Negative Urine Blood Negative Negative /uL Urine Nitrite Negative Negative Urine Bilirubin Negative Negative Urine Urobilinogen 2 H Negative mg/dL Urine Leukocyte Esterase 1+ Negative /uL Urine RBC 2 0 - 4 /hpf Urine Microscopic WBC 16 H 0-5 /HPF Urine Squamous Epithelial Cells Mod <5 /hpf Urine Bacteria None seen None Seen /hpf Urine Glucose Normal Normal mg/dL Urine Test Negative Negative White Blood Count 5.0 4.4-10.8 10^3/uL Red Blood Count 4.02 4.0-5.20 10^6/uL Hemoglobin 14.0 12.2-16.2 g/dL Hematocrit 40.4 36.0-46.0 % Mean Corpuscular Volume 100.7 H 80.0-100.0 fL Mean Corpuscular Hemoglobin 34.8 H 28.0-32.0 pg Mean Corpuscular Hemoglobin Concent 34.6 32.0-36.0 g/dL Red Cell Distribution Width 19.4 H 11.8-14.3 % Platelet Count 217 140-450 10^3/uL Mean Platelet Volume 7.4 6.9-10.8 fL Neutrophils (%) (Auto) 68.0 37.0-80.0 % Lymphocytes (%) (Auto) 20.5 10.0-50.0 % Monocytes (%) (Auto) 10.1 0.0-12.0 % Eosinophils (%) (Auto) 0.4 0.0-7.0 % Basophils (%) (Auto) 1.0 0.0-2.0 % Neutrophils # (Auto) 3.4 1.6-8.6 10 ^3/uL Lymphocytes # (Auto) 1.0 0.4-5.4 10 ^3/uL Monocytes # (Auto) 0.5 0-1.3 10 ^3/uL Eosinophils # (Auto) 0 0-0.8 10 ^3/uL Basophils # (Auto) 0.1 0-0.2 10 ^3/uL Nucleated Red Blood Cells 0.2 % Sodium Level 136 136-145 mmol/L Potassium Level 2.9 L 3.5-5.1 mmol/L Chloride Level 95 L 98-107 mmol/L Carbon Dioxide Level 27 20-31 mmol/L Anion Gap 14 5-15 Blood Urea Nitrogen 7 L 9-23 mg/dL Creatinine 0.81 0.550-1.02 mg/dL Glomerular Filtration Rate Calc 97 >90 mL/min BUN/Creatinine Ratio 8.6 L 10.0-20.0 Serum Glucose 100 74-106 mg/dL Calcium Level 9.3 8.7-10.4 mg/dL Total Bilirubin 2.1 H 0.2-1.0 mg/dL Aspartate Amino Transferase (AST) 49 H 13-40 U/L Alanine Aminotransferase (ALT) 21 7-40 U/L Alkaline Phosphatase 85 46-116 U/L Total Protein 8.8 H 5.7-8.2 g/dL Albumin 4.7 3.2-4.8 g/dL Lipase 329 H 12-53 U/L SEPSIS Sepsis Screen Date sepsis recognized/suspect: Apr 18, 2025 Time Sepsis recognized/suspect: 814 Recent Procedure: No On Antibiotic Therapy: No Respiratory Rate >20: No Heart Rate >90: Yes Temp<36 C (96.8 F) or >38.3 C: No SBP <90 or MAP <65 mmHG: No New Acute Mental Status Change: No Is the patient on CPAP, BIPAP,: No Physician Orders Heplock Iv (04/18/25 08:29) Acid Loader (04/18/25 08:29) Blood Pressure (04/18/25 08:29) Pulse Oximetry (04/18/25 08:29) Admit (04/18/25 14:04) Code Status (04/18/25 14:04) Ondansetron Hcl (Zofran) (04/18/25 14:15) Complete Blood Count (04/19/25 04:00) Comprehensive Metabolic Panel (04/19/25 04:00) Npo (Nothing By Mouth) Diet (04/18/25 Dinner) Morphine Sulfate Injection (04/18/25 14:15) Lovenox 40mg (04/19/25 10:00) Oxygen By Nasal Cannula (04/18/25 14:04) Stat Ekg For Chest Pain (04/18/25 14:04) Notify Of Changes From Base (04/18/25 14:04) Forestry Support Specialist For 24 Hours (04/18/25 14:04) Emergency Dysrhythmia Protocol (04/18/25 14:04) Rhythm Strips Once Every Shift (04/18/25 14:04) Lactated Ringers Lr (04/18/25 14:15) Ceftriaxone Ivpb Rocephin (04/18/25 14:15) Ceftriaxone Ivpb Rocephin (04/19/25 09:00) Urine Bacterial Culture (04/18/25 14:04) Vitamin D, 25-Hydroxy (04/18/25 14:04) Vitamin B12 (04/18/25 14:04) Thyroid Stimulating Hormone (04/18/25 14:04) PTPTT (04/18/25 14:04) Phosphorus (04/18/25 14:04) Magnesium (04/18/25 14:04) Lipid Panel (04/18/25 14:04) Lactic Acid W/ Reflex Order (04/18/25 14:04) Hemoglobin A1c (04/18/25 14:04) Drug Screen (04/18/25 14:04) Ammonia (04/18/25 14:04) Abdomen Complete Sonogram (04/18/25 14:04) Pantoprazole (Protonix) (04/19/25 10:00) Blood Alcohol (04/18/25 14:04) Vital Signs Date Time Temp Pulse Resp B/P (MAP) Pulse Ox O2 Delivery O2 Flow Rate FiO2 04/18/25 13:42 97.9 102 16 114/68 (83) 99 97.9 04/18/25 10:42 97.7 114 16 111/81 (91) 96 97.7 04/18/25 09:56 97.9 107 18 117/95 (102) 100 97.9 04/18/25 09:56 107 18 100 Room Air 04/18/25 08:13 97.6 116 16 117/85 100 97.6 Laboratory Tests Test 04/18/25 08:36 White Blood Count 5.0 10^3/uL (4.4-10.8) Medications Medications Dose Ordered Sig/Jose Route Start Time Stop Time Status Last Admin Dose Admin Sodium Chloride 1,000 ml @ 1,000 mls/hr Q1H ONCE IVB 04/18/25 08:30 04/18/25 09:29 DC 04/18/25 10:30 1,000 MLS/HR Assessment/Plan Assessment/Plan ASSESSMENT Acute pancreatitis probably secondary to alcohol consumption ([place]'s criteria 0 point: 1% predicted mortality) Hypokalemia Hypophosphatemia Transaminitis UTI Ruled out choledocholithiasis Hepatic steatosis Macrocytosis History of bone marrow biopsy which was within normal limits Severe malnutrition (BMI 18) PLAN Lipase was 329 Indicated NPO Indicated IV fluids Currently under empiric IV antibiotic (ceftriaxone) due to positive UA for UTI Urine test negative Probable cause of pancreatitis is alcohol consumption. Ruled out hypertriglyceridemia and choledocholithiasis/cholelithiasis Completed abdomen ultrasound which showed hepatic steatosis in no choledocholithiasis Replenish potassium Goals of care discussed with patient for over 18 minutes: Full code status Discussed plan with Dr. Blackwood, patient and nurses: Patient admitted to telemetry. Correcting electrolyte disbalance. Patient currently NPO, on IV fluids, and empiric IV antibiotics. Advance diet as tolerated. Plan discussed with: Patient, Other (Nurses) My Orders Orders - DAVEY CASTRO RESIDENT Procedure Category Date Status Time Admit ADMIT 04/18/25 Transmitted 14:04 Code Status CODE 04/18/25 Transmitted 14:04 Ondansetron Hcl PHA 04/18/25 Transmitted (Zofran) 14:15 Complete Blood Count LAB 04/19/25 Verified 04:00 Comprehensive LAB 04/19/25 Verified Metabolic Panel 04:00 Npo (Nothing By DIET 04/18/25 Transmitted Mouth) Diet Dinner Morphine Sulfate PHA 04/18/25 Transmitted Injection 14:15 Lovenox 40mg PHA 04/19/25 Transmitted 10:00 Oxygen By Nasal RT 04/18/25 Transmitted Cannula 14:04 Stat Ekg For Chest DENICE 04/18/25 Transmitted Pain 14:04 Notify Of Changes DENICE 04/18/25 Transmitted From Base 14:04 Forestry Support Specialist For DENICE 04/18/25 Transmitted 24 Hours 14:04 Emergency Dysrhythmia DENICE 04/18/25 Transmitted Protocol 14:04 Rhythm Strips Once DENICE 04/18/25 Transmitted Every Shift 14:04 Lactated Ringers Lr PHA 04/18/25 Transmitted 14:15 Ceftriaxone Ivpb PHA 04/18/25 Transmitted Rocephin 14:15 Ceftriaxone Ivpb PHA 04/19/25 Transmitted Rocephin 09:00 Urine Bacterial VÍCTOR 04/18/25 Transmitted Culture 14:04 Vitamin D, 25-Hydroxy LAB 04/18/25 Transmitted 14:04 Vitamin B12 LAB 04/18/25 Transmitted 14:04 Thyroid Stimulating LAB 04/18/25 Transmitted Hormone 14:04 PTPTT LAB 04/18/25 Transmitted 14:04 Phosphorus LAB 04/18/25 Transmitted 14:04 Magnesium LAB 04/18/25 Transmitted 14:04 Lipid Panel LAB 04/18/25 Transmitted 14:04 Lactic Acid W/ Reflex LAB 04/18/25 Transmitted Order 14:04 Hemoglobin A1c LAB 04/18/25 Transmitted 14:04 Drug Screen LAB 04/18/25 Transmitted 14:04 Ammonia LAB 04/18/25 Transmitted 14:04 Abdomen Complete US 04/18/25 Transmitted Sonogram 14:04 Pantoprazole PHA 04/19/25 Transmitted (Protonix) 10:00 Blood Alcohol LAB 04/18/25 Transmitted 14:04 Date of Service: Apr 18, 2025 Billing Provider: KEYONNA BLACKWOOD DO Common Visit Codes: [id number] INP/OBS CARE (HIGH) Secondary Visit Codes: [id number] CARE PLAN 30 MINUTES DAVEY CASTRO RESIDENT Apr 18, 2025 14:11 KEYONNA BLACKWOOD DO Apr 23, 2025 00:24
[2025-04-18] MEDS ORDERED: ONDANSETRON HCL 4 MG/2 ML VIAL IV PRN (14:15)
[2025-04-18 14:55] LABS: INR 1.02 (0.9-1.15); Partial Thromboplastin Time 27.3 SEC (24.5-34.5); Prothrombin Time 10.8 sec (9.3-11.8)
[2025-04-18 15:13] LABS: Triglycerides 130.0 mg/dL (< 150)
[2025-04-18 15:14] LABS: Magnesium 1.7 mg/dL (1.6-2.6)
[2025-04-18 15:19] LABS: Cholesterol 214.0 mg/dL (< 200); HDL Cholesterol 110.0 mg/dL (40-59)
--- NOTE | 2025-04-18 15:47 | DVH ---
CLINICAL HISTORY: R/o biliary pancreatitis TECHNIQUE: Transabdominal sonogram was performed of the right upper quadrant. COMPARISON: US ABDOMEN COMPLETE SONOGRAM on DOS: 10/26/24, CT CT AB PEL WO CON-NO ORAL OR IV on DOS: 10/26/24 FINDINGS: The liver is increased in echogenicity. There is no focal parenchymal abnormality. No intrahepatic biliary ductal dilatation is present. The liver measures 15.3 cm. The gallbladder is normal with no evidence for stones or wall thickening. The common bile duct is normal in caliber, measuring 2 mm. The visualized pancreas is grossly unremarkable. The right kidney is normal in echogenicity and measures 10.2 cm in length. There is no evidence for hydronephrosis or calculi. IMPRESSION: Diffuse hepatic steatosis.
[2025-04-18 17:30] LABS: Amphetamine Screen, Urine Neg (NEGATIVE); Barbiturate Scree,Urine Neg (NEGATIVE); Benzodiazephine Screen, Urine Neg (NEGATIVE); Cannabinoid Screen, Urine Neg (NEGATIVE); Cocaine Screen, Urine Neg (NEGATIVE); Opiate Scree,Urine Neg (NEGATIVE); Phencyclidine Screen, Urine Neg (NEGATIVE)
[2025-04-18] MEDS: POTASSIUM EFFERVESENT TAB 25 MEQ PO ONE (21:06)
[2025-04-18] MEDS: HYDROcodone-ACET 5/325MG TAB PO PRN (22:00)
[2025-04-18] MEDS: LACTATED RINGER'S 1,000 ML IV SCH (22:03)
[2025-04-19] VITALS (8 sets, daily range): BP systolic 101–129; BP diastolic 72–86; PULSE 69–96; RESP 16–20; TEMP 97.2–98.4; O2SAT 94–100
[2025-04-19] MEDS: POTASSIUM CHL 20MEQ/100ML 100 ML IV SCH ×2 (00:58→09:04)
[2025-04-19] MEDS: MORPHINE SULFATE INJ 2 MG/ml SYRG IV PRN (01:18)
[2025-04-19] MEDS: POTASSIUM PHOSPHATE 22 MEQ in SODIUM CHL 0.9% 100 ML IV ONE (03:13)
[2025-04-19 04:57] LABS: Nucleated Red Blood Cells % 0.1 %
[2025-04-19 04:59] LABS: Hematocrit 35.8 % (36.0-46.0); Hemoglobin 12.4 g/dL (12.2-16.2); Mean Corpuscular Hemoglobin 35.2 pg (28.0-32.0); Mean Corpuscular Volume 101.7 fL (80.0-100.0)
[2025-04-19 05:16] LABS: Alanine Aminotransferase 18 U/L (7-40); Albumin 3.9 g/dL (3.2-4.8); Alkaline Phosphatase 70 U/L (46-116); Anion Gap 10 (5-15); BUN/Creatinine Ratio 9.1 (10.0-20.0); Bilirubin, Total 1.0 mg/dL (0.2-1.0); Carbon Dioxide 26 mmol/L (20-31); Chloride 102 mmol/L (98-107); Cholesterol 170 mg/dL (< 200); Glucose 83 mg/dL (74-106); Potassium 3.6 mmol/L (3.5-5.1); Sodium 138 mmol/L (136-145); Total Protein 7.2 g/dL (5.7-8.2); Triglycerides 94 mg/dL (< 150)
[2025-04-19 05:25] LABS: Blood Urea Nitrogen 6 mg/dL (9-23); Calcium 8.3 mg/dL (8.7-10.4); HDL Cholesterol 85 mg/dL (40-59)
[2025-04-19] MEDS: PANTOPRAZOLE 40 MG/10 ML VIAL INJ IV SCH (08:30)
[2025-04-19] MEDS: ENOXAPARIN SOD 40 MG/0.4 ML SYRINGE SC SCH (08:37)
[2025-04-19] MEDS: THIAMINE 100mg/ml INJ (200mg/2ml VIAL) IV ONE (09:00)
[2025-04-19 09:54] LABS: Magnesium 1.7 mg/dL (1.6-2.6)
[2025-04-19] MEDS ORDERED: FOLIC ACID 1 MG in D5W 5% 50 ML INJ SCH (10:00)
[2025-04-19] MEDS: FOLIC ACID 1 MG, MAGNESIUM SULF SDV 50% 8 MEQ, MULTIPLE VITAMIN 10 ML, THIAMINE INJ 100... INJ ONE (11:57)
--- NOTE | 2025-04-19 16:26 | DVHPNRES ---
Progress Note Date Seen: Apr 19, 2025 Resident Creating Document: NORI LEAL MD Medical Necessity Reason Pt with a Central, PICC or Fol: No Subjective Review of Systems Sarita Eisenberg is a 35-year-old female with past medical history of hypertension, anemia, leukopenia, pancreatitis, gastritis who presented with complaints of abdominal pain since Thursday. Patient rates the abdominal pain 8 on 10, burning in nature, radiating down. She says that she has been drinking 2 days after weekend on the past to weekends. She also reports of eating a peds after which the pain began. She complains of associated nausea and chills. She denies any fever, vomiting or shortness of breath. Patient does report unintentional weight loss of 6 lb in appearance three months. Patient was previously diagnosed with pancreatitis in September 2024 where she was indicated a bland diet, and avoid fatty foods. PMHx:hypertension, anemia, pancreatitis, gastritis PSHx: Bone marrow biopsy Family history: family history of skin cancer in mom, grandparent and aunt Social history: denies smoking or drug use, admits to occasional alcohol use Home medication: Protonix, sucralfate Allergic history: no known allergies General: patient denies fever, fatigue, weaknes, sweating, any recent changes in appetite and weight HEENT: No headaches, visiual changes, hearing loss, tinnitus, nasal congestion and discharge, and sore throat. Cardiovascular: Denies chest pain, palpitations, dyspnea on exertion, orthopnea, or claudication. Respiratory: No cough, and wheezing. Gastrointestinal: Denies nausea, vomiting, dysphagia, odynophagia, heartburn, abdominal pain, flatulence, bloating, diarrhea, constipation, change in stool, or blood in stool. Genitourinary: complains of abdominal pain Endocrine: No heat or cold intolerance, polydipsia, polyuria, and polyphagia. Neurological: No dizziness, extremity weakness and numbness, tremors, gait disturbance, seizures, and memory impairment. Psychiatric: Denies depression, anxiety,or insomnia. Musculoskeletal: Denies neck pain, stiffness and swelling, back pain, muscle weakness, joint pain, stiffness, swelling, or limited range of motion. Skin: No rashes, itching, skin lesion, changes in hair, nail, skin texture and breast. Hematologic/Lymphatic: Denies easy bruising, bleeding tendencies, or lymph node enlargement. Objective vital signs Vital Sign Date Time Temp Pulse Resp B/P (MAP) Pulse Ox O2 Delivery O2 Flow Rate FiO2 04/19/25 14:59 98 17 115/77 04/19/25 13:00 98.0 94 98.0 04/19/25 00:24 Room Air* 0 21 Total Intake and Output 04/18/25 04/18/25 04/19/25 15:00 23:00 07:00 Intake Total 0 ml Balance 0 ml medications Current Medications Medications Dose Ordered Sig/Jose Route Start Time Stop Time Status Last Admin Dose Admin Ondansetron HCl 4 mg Q4HP PRN IV 04/18/25 14:15 Morphine Sulfate 2 mg Q4HPRN PRN IV 04/18/25 14:15 04/19/25 14:59 2 MG Enoxaparin Sodium 40 mg DAILY SC 04/19/25 10:00 04/19/25 08:37 40 MG Lactated Ringer's 1,000 ml @ 75 mls/hr [id number] IV 04/18/25 14:15 04/18/25 22:03 75 MLS/HR Ceftriaxone Sodium 50 ml @ 100 mls/hr DAILY@09 IV 04/19/25 09:00 04/19/25 08:35 100 MLS/HR Pantoprazole Sodium 40 mg DAILY IV 04/19/25 10:00 04/19/25 08:30 40 MG Acetaminophen/ Hydrocodone Bitart 1 tab Q6HP PRN PO 04/18/25 21:30 04/18/25 22:00 1 TAB Examination General Appearance: Alert, Oriented X3, Cooperative, No acute distress HEENT: Atraumatic, PERRLA, EOMI, Mucous membrane moist/pink Respiratory: Clear to auscultation, Normal air movement Cardiovascular: Regular rate, Normal S1, Normal S2, No murmurs, no chest wall tenderness Abdominal: tenderness the epigastrium and left upper quadrant Extremities: No clubbing, No cyanosis, No edema, Normal pulses, No tenderness/swelling Skin: No rashes, No breakdown, No significant lesion Neuro: Normal gait, Normal speech, Strength at 5/5 X4 ext, Normal tone, Sensation intact, Cranial nerves 3-12 NL, Reflexes 2+ Psych/Mental Status: Mental status NL, Mood NL laboratory and microbiology Laboratory Tests 04/19/25 04:11 Test 04/19/25 04:11 Range/Units Serum Glucose 83 74-106 mg/dL Microbiology Date/Time Source Procedure Growth Status 04/18/25 09:31 Voided Urine Urine Culture - Preliminary Resulted Problem List/Assessment/Plan Problem List/Assessment/Plan Assessment and plan Acute pancreatitis probably secondary to alcohol consumption Transaminitis likely due to above Ruled out choledocholithiasis Lipase was 329 clear liquid diet pain management IV fluids Probable cause of pancreatitis is alcohol consumption. Ruled out hypertriglyceridemia and choledocholithiasis/cholelithiasis Uncomplicated UTI On ceftriaxone Urine culture Hypokalemia Hypophosphatemia Macrocytosis Severe malnutrition Replenish potassium thiamine and folic acid supplemented banana bag Hepatic steatosis likely due to NAFLD Follow up with PCP on discharge DVT PROPHYLAXIS: Lovenox GI PROPHYLAXIS:: Protonix CODE STATUS: full code DISPOSITION: Med/surge Patient's status and plan discussed with the patient. Case discussed with Dr. Centeno Plan discussed with: Patient Date of Service: Apr 19, 2025 Billing Provider: NORI LEAL MD Common Visit Codes: [id number] INP/OBS CARE(HIGH) GABBY WATKINS RESIDENT Apr 19, 2025 16:26
[2025-04-19 17:17] LABS: Urine Protein, UAD Negative (Negative)
[2025-04-20] VITALS (8 sets, daily range): BP systolic 100–129; BP diastolic 58–84; PULSE 70–101; RESP 16–19; TEMP 97.5–98.9; O2SAT 96–100
[2025-04-20 05:32] LABS: Hematocrit 32.0 % (36.0-46.0); Hemoglobin 11.4 g/dL (12.2-16.2); Mean Corpuscular Hemoglobin 35.8 pg (28.0-32.0); Mean Corpuscular Volume 100.7 fL (80.0-100.0); Nucleated Red Blood Cells % 0.1 %
[2025-04-20 05:51] LABS: Alanine Aminotransferase 14 U/L (7-40); Alkaline Phosphatase 61 U/L (46-116); Anion Gap 11 (5-15); Carbon Dioxide 26 mmol/L (20-31); Chloride 103 mmol/L (98-107); Glucose 90 mg/dL (74-106); Sodium 140 mmol/L (136-145); Total Protein 6.7 g/dL (5.7-8.2)
[2025-04-20 05:52] LABS: Albumin 3.6 g/dL (3.2-4.8); Bilirubin, Total 0.7 mg/dL (0.2-1.0)
[2025-04-20 05:56] LABS: BUN/Creatinine Ratio 9.6 (10.0-20.0); Blood Urea Nitrogen < 5 mg/dL (9-23); Calcium 8.4 mg/dL (8.7-10.4); Potassium 3.5 mmol/L (3.5-5.1)
[2025-04-20] MEDS ORDERED: SUCR1TAB31 OR (06:54)
--- NOTE | 2025-04-20 15:48 | DVHPNRES ---
Progress Note Date Seen: Apr 20, 2025 Resident Creating Document: GABBY WATKINS RESIDENT Medical Necessity Reason Pt with a Central, PICC or Fol: No Subjective Review of Systems Patient seen at bedside. complaints of abdominal pain. On morphine. Sarita Eisenberg is a 35-year-old female with past medical history of hypertension, anemia, leukopenia, pancreatitis, gastritis who presented with complaints of abdominal pain since Thursday. Patient rates the abdominal pain 8 on 10, burning in nature, radiating down. She says that she has been drinking 2 days after weekend on the past to weekends. She also reports of eating a peds after which the pain began. She complains of associated nausea and chills. She denies any fever, vomiting or shortness of breath. Patient does report unintentional weight loss of 6 lb in appearance three months. Patient was previously diagnosed with pancreatitis in September 2024 where she was indicated a bland diet, and avoid fatty foods. PMHx:hypertension, anemia, pancreatitis, gastritis PSHx: Bone marrow biopsy Family history: family history of skin cancer in mom, grandparent and aunt Social history: denies smoking or drug use, admits to occasional alcohol use Home medication: Protonix, sucralfate Allergic history: no known allergies General: patient denies fever, fatigue, weaknes, sweating, any recent changes in appetite and weight HEENT: No headaches, visiual changes, hearing loss, tinnitus, nasal congestion and discharge, and sore throat. Cardiovascular: Denies chest pain, palpitations, dyspnea on exertion, orthopnea, or claudication. Respiratory: No cough, and wheezing. Gastrointestinal: Denies nausea, vomiting, dysphagia, odynophagia, heartburn, abdominal pain, flatulence, bloating, diarrhea, constipation, change in stool, or blood in stool. Genitourinary: complains of abdominal pain Endocrine: No heat or cold intolerance, polydipsia, polyuria, and polyphagia. Neurological: No dizziness, extremity weakness and numbness, tremors, gait disturbance, seizures, and memory impairment. Psychiatric: Denies depression, anxiety,or insomnia. Musculoskeletal: Denies neck pain, stiffness and swelling, back pain, muscle weakness, joint pain, stiffness, swelling, or limited range of motion. Skin: No rashes, itching, skin lesion, changes in hair, nail, skin texture and breast. Hematologic/Lymphatic: Denies easy bruising, bleeding tendencies, or lymph node enlargement. Objective vital signs Vital Sign Date Time Temp Pulse Resp B/P (MAP) Pulse Ox O2 Delivery O2 Flow Rate FiO2 04/20/25 12:55 97.9 95 18 129/84 (99) 96 97.9 04/20/25 08:00 Room Air* 0 21 Total Intake and Output 04/19/25 04/19/25 04/20/25 15:00 23:00 07:00 Intake Total 675 ml 1930 ml Balance 675 ml 1930 ml medications Current Medications Medications Dose Ordered Sig/Jose Route Start Time Stop Time Status Last Admin Dose Admin Ondansetron HCl 4 mg Q4HP PRN IV 04/18/25 14:15 Enoxaparin Sodium 40 mg DAILY SC 04/19/25 10:00 04/20/25 08:34 40 MG Ceftriaxone Sodium 50 ml @ 100 mls/hr DAILY@09 IV 04/19/25 09:00 04/20/25 08:26 100 MLS/HR Pantoprazole Sodium 40 mg DAILY IV 04/19/25 10:00 04/20/25 08:26 40 MG Acetaminophen/ Hydrocodone Bitart 1 tab Q6HP PRN PO 04/18/25 21:30 04/20/25 08:41 1 TAB Examination General Appearance: Alert, Oriented X3, Cooperative, No acute distress HEENT: Atraumatic, PERRLA, EOMI, Mucous membrane moist/pink Respiratory: Clear to auscultation, Normal air movement Cardiovascular: Regular rate, Normal S1, Normal S2, No murmurs, no chest wall tenderness Abdominal: tenderness the epigastrium and left upper quadrant Extremities: No clubbing, No cyanosis, No edema, Normal pulses, No tenderness/swelling Skin: No rashes, No breakdown, No significant lesion Neuro: Normal gait, Normal speech, Strength at 5/5 X4 ext, Normal tone, Sensation intact, Cranial nerves 3-12 NL, Reflexes 2+ Psych/Mental Status: Mental status NL, Mood NL laboratory and microbiology Laboratory Tests 04/20/25 04:29 Test 04/20/25 04:29 Range/Units Serum Glucose 90 74-106 mg/dL Microbiology Date/Time Source Procedure Growth Status 04/18/25 09:31 Voided Urine Urine Culture - Preliminary Resulted Problem List/Assessment/Plan Problem List/Assessment/Plan Assessment and plan Acute pancreatitis probably secondary to alcohol consumption Transaminitis likely due to above Ruled out choledocholithiasis Lipase was 329 clear liquid diet pain management IV fluids Probable cause of pancreatitis is alcohol consumption. Ruled out hypertriglyceridemia and choledocholithiasis/cholelithiasis Uncomplicated UTI On ceftriaxone Urine culture Hypokalemia Hypophosphatemia Macrocytosis Severe malnutrition Replenish potassium thiamine and folic acid supplemented banana bag Hepatic steatosis likely due to NAFLD Follow up with PCP on discharge DVT PROPHYLAXIS: Lovenox GI PROPHYLAXIS:: Protonix CODE STATUS: full code DISPOSITION: Med/surge Patient's status and plan discussed with the patient. Case discussed with Dr. Centeno Plan discussed with: Patient Date of Service: Apr 20, 2025 Billing Provider: NORI LEAL MD Common Visit Codes: [id number] INP/OBS CARE(HIGH) GABBY WATKINS RESIDENT Apr 20, 2025 15:48
[2025-04-21 01:00] VITALS: BP 110/75; PULSE 77; RESP 17; TEMP 97.9; O2SAT 100
[2025-04-21 05:00] VITALS: BP 92/64; PULSE 80; RESP 18; TEMP 98; O2SAT 98
[2025-04-21] MEDS ORDERED: SUCR1TAB31 OR (07:01)
[2025-04-21] MEDS ORDERED: PANT40TA2 PO (07:01)
[2025-04-21 07:31] LABS: Nucleated Red Blood Cells % 0.2 %
[2025-04-21 07:34] LABS: Hematocrit 31.9 % (36.0-46.0); Hemoglobin 11.3 g/dL (12.2-16.2); Mean Corpuscular Hemoglobin 35.6 pg (28.0-32.0); Mean Corpuscular Volume 100.0 fL (80.0-100.0)
[2025-04-21 07:46] LABS: Alanine Aminotransferase 14 U/L (7-40); Albumin 3.6 g/dL (3.2-4.8); Alkaline Phosphatase 59 U/L (46-116); Anion Gap 13 (5-15); Calcium 8.8 mg/dL (8.7-10.4); Carbon Dioxide 23 mmol/L (20-31); Chloride 104 mmol/L (98-107); Glucose 87 mg/dL (74-106); Sodium 140 mmol/L (136-145); Total Protein 6.6 g/dL (5.7-8.2)
[2025-04-21 07:47] LABS: BUN/Creatinine Ratio 8.9 (10.0-20.0); Bilirubin, Total 0.5 mg/dL (0.2-1.0); Blood Urea Nitrogen < 5 mg/dL (9-23); Potassium 3.2 mmol/L (3.5-5.1)
[2025-04-21 08:00] VITALS: PULSE 82; PULSE 88; RESP 15; O2SAT 96
[2025-04-21 09:00] VITALS: BP 106/79; PULSE 94; RESP 18; TEMP 97; O2SAT 95
--- NOTE | 2025-04-21 16:57 | DVHDSRES ---
Discharge Summary Date of Admission Resident Creating Document: GABBY WATKINS RESIDENT Apr 18, 2025 at 14:04 Date of Discharge: Apr 21, 2025 Labs/Diagnostic Data: Laboratory Results Test 04/21/25 06:35 04/19/25 12:15 04/19/25 09:06 04/19/25 04:11 White Blood Count 2.7 10^3/uL (4.4-10.8) Red Blood Count 3.19 10^6/uL (4.0-5.20) Hemoglobin 11.3 g/dL (12.2-16.2) Hematocrit 31.9 % (36.0-46.0) Mean Corpuscular Volume 100.0 fL (80.0-100.0) Mean Corpuscular Hemoglobin 35.6 pg (28.0-32.0) Mean Corpuscular Hemoglobin Concent 35.6 g/dL (32.0-36.0) Red Cell Distribution Width 19.0 % (11.8-14.3) Platelet Count 173 10^3/uL (140-450) Mean Platelet Volume 7.5 fL (6.9-10.8) Neutrophils (%) (Auto) 44.4 % (37.0-80.0) Lymphocytes (%) (Auto) 37.7 % (10.0-50.0) Monocytes (%) (Auto) 15.3 % (0.0-12.0) Eosinophils (%) (Auto) 1.5 % (0.0-7.0) Basophils (%) (Auto) 1.1 % (0.0-2.0) Neutrophils # (Auto) 1.2 10 ^3/uL (1.6-8.6) Lymphocytes # (Auto) 1.0 10 ^3/uL (0.4-5.4) Monocytes # (Auto) 0.4 10 ^3/uL (0-1.3) Eosinophils # (Auto) 0 10 ^3/uL (0-0.8) Basophils # (Auto) 0 10 ^3/uL (0-0.2) Nucleated Red Blood Cells 0.2 % Sodium Level 140 mmol/L (136-145) Potassium Level 3.2 mmol/L (3.5-5.1) Chloride Level 104 mmol/L (98-107) Carbon Dioxide Level 23 mmol/L (20-31) Anion Gap 13 (5-15) Blood Urea Nitrogen < 5 mg/dL (9-23) Creatinine 0.56 mg/dL (0.550-1.02) Glomerular Filtration Rate Calc 122 mL/min (>90) BUN/Creatinine Ratio 8.9 (10.0-20.0) Serum Glucose 87 mg/dL (74-106) Calcium Level 8.8 mg/dL (8.7-10.4) Total Bilirubin 0.5 mg/dL (0.2-1.0) Aspartate Amino Transferase (AST) 25 U/L (13-40) Alanine Aminotransferase (ALT) 14 U/L (7-40) Alkaline Phosphatase 59 U/L (46-116) Total Protein 6.6 g/dL (5.7-8.2) Albumin 3.6 g/dL (3.2-4.8) Urine Color Light-yellow (Yellow) Urine Clarity Clear (Clear) Urine pH 7.0 (5.0-9.0) Urine Specific [place] 1.011 (1.001-1.035) Urine Protein Negative (Negative) Urine Ketones 1+ (Negative) Urine Blood Negative /uL (Negative) Urine Nitrite Negative (Negative) Urine Bilirubin Negative (Negative) Urine Urobilinogen Normal mg/dL (Negative) Urine Leukocyte Esterase Trace /uL (Negative) Urine RBC <1 /hpf (0 - 4) Urine Microscopic WBC 2 /HPF (0-5) Urine Squamous Epithelial Cells Few /hpf (<5) Urine Bacteria None seen /hpf (None Seen) Urine Glucose Normal mg/dL (Normal) Troponin I High Sensitivity 3 ng/L (</=34) Phosphorus Level 2.2 mg/dL (2.4-5.1) Magnesium Level 1.7 mg/dL (1.6-2.6) Triglycerides Level 94 mg/dL (< 150) Cholesterol Level 170 mg/dL (< 200) LDL Cholesterol 69 mg/dL (< 100) HDL Cholesterol 85 mg/dL (40-59) Test 04/18/25 14:27 04/18/25 14:04 04/18/25 09:31 04/18/25 08:36 Prothrombin Time 10.8 sec (9.3-11.8) Prothrombin Time INR 1.02 (0.9-1.15) Activated Partial Thromboplast Time 27.3 SEC (24.5-34.5) Lactic Acid Level 0.9 mmol/L (0.4-2.0) Ammonia < 10 umol/L (11-32) Plasma/Serum Blood Alcohol < 3.0 mg/dL (<10) Urine Opiates Screen Neg (NEGATIVE) Urine Fentanyl Screen Neg (NEGATIVE) Urine Barbiturates Screen Neg (NEGATIVE) Urine Phencyclidine Screen Neg (NEGATIVE) Urine Amphetamines Screen Neg (NEGATIVE) Urine Benzodiazepines Screen Neg (NEGATIVE) Urine Cocaine Screen Neg (NEGATIVE) Urine Cannabinoids Screen Neg (NEGATIVE) Urine Test Negative (Negative) Hemoglobin A1c 4.8 % A1C (<5.7) Lipase 329 U/L (12-53) Vitamin B12 Level 442 pg/mL (211-911) Vitamin D 25-Hydroxy 38.5 ng/mL (30.0-100) Thyroid Stimulating Hormone (TSH) 2.03 uIU/mL (0.55-4.78) Other Laboratory Tests 04/21/25 06:35 Brief Hx & Hospital Course: HISTORY OF PRESENT ILLNESS: Sarita Eisenberg is a 35-year-old female patient who presents to the ED with chief complaint of sharp epigastric pain which radiates towards left upper quadrant and umbilical area which started at 8:00 p.m. on 04/17/2025 associated with nausea, sweats and polydipsia. Patient does report unintentional weight loss of 6 lb in appearance three months. Patient was previously diagnosed with pancreatitis in September 2024 where she was indicated a bland diet, and avoid fatty foods. Patient has been avoiding fatty foods and alcohol until past plan of couple weeks where she reports drinking nine white claws in the past two weekends. Patient believes that her diet triggered her symptoms. Denies any other associated symptom. HOSPITAL COURSE: Patient was admitted at the line of acute pancreatitis, possible UTI alcohol use disorder. The patient was put NPO, started IV fluid, Protonix, and pain management. Ultrasound performed, showed,Diffuse hepatic steatosis. During hospital admission, the patient also developed hypokalemia which was repleted. On 04/21, the patient was feeling better since admission. The patient was able to tolerate oral intake. Abdominal pain had improved, the patient does not have any nausea or vomiting. Discharge plan discussed with the patient the patient discharged home. DISCHARGE PLAN: Protonix 40 mg daily Carafate Follow up with the PCP within 1 week of the discharge. Follow up with the discharge Clinic within 1 week of discharge. Continue home meds FINAL DIAGNOSIS: Acute pancreatitis probably secondary to alcohol consumption INTRACTABLE ABDOMINAL PAIN AND NAUSEA, DUE TO ABOVETransaminitis likely due to above Ruled out choledocholithiasis Uncomplicated UTI Hypokalemia Hypophosphatemia Macrocytosis Severe malnutrition Hepatic steatosis likely due to NAFLD SIRS POSITIVE, WITH NO END-ORGAN DAMAGE Condition at Discharge: Stable Final Diagnosis/Problems List Acute pancreatitis probably secondary to alcohol consumption INTRACTABLE ABDOMINAL PAIN AND NAUSEA, DUE TO ABOVETransaminitis likely due to above Ruled out choledocholithiasis Uncomplicated UTI Hypokalemia Hypophosphatemia Macrocytosis Severe malnutrition Hepatic steatosis likely due to NAFLD SIRS POSITIVE, WITH NO END-ORGAN DAMAGE Discharge Disposition: Home Discharge Instruct/Medications Diet: Regular Diet comment: Clear liquid diet for 1 week, then regular diet Activity: Light activity Follow Up/Referral: Follow up with the PCP within 1 week of the discharge. Follow up with the discharge Clinic within 1 week of the discharge. Medications: Protonix 40 mg daily Carafate Scheduled Gemfibrozil (Lopid), 1 TAB PO BID Pantoprazole Sodium Sesquihydr (Pantoprazole Sodium), 40 MG PO DAILY Pantoprazole Sodium Sesquihydr (Protonix), 40 MG PO DAILY Sucralfate (Carafate), 1 GM OR 4xDay, (Reported) Sucralfate (Carafate), 1 GM OR TID Discharge Statement: "Patient was advised to return to the ER or call 911 if any headaches, dizziness, shortness of breath, chest pain, abdominal pain, bleeding, fevers, or worsening of medical condition. Patient was counseled about treatment plan, medications, possible side effects, patientverbalized understanding. All questions were answered to the best of my ability. This discharge took greater then 30 minutes in planning, reviewing documentation, counseling the patient, and discussing with other team members." ASSESSMENT ASSESSMENT Assessment PANCREATITIS Date of Service: Apr 21, 2025 Billing Provider: NORI LEAL MD Common Visit Codes: [id number] DISCH DAY >30min MELITAMEGAROB RESDIENT Apr 21, 2025 16:57 NORI LEAL MD Apr 24, 2025 10:37
== END 2025-04-21 10:44 | disposition home or self-care (01) | DRG 282 ==
LOC: ER 08:07 → OVERFLOW 14:04 → TELE-WESTW 04-19 17:18
PROVIDERS: ADMIT Student in an Organized Health Care Education/Training Program; ATTEND Student in an Organized Health Care Education/Training Program
DX: K85.20 Alcohol induced acute pancreatitis without necrosis or infection (principal); E43 Unspecified severe protein-calorie malnutrition; N39.0 Urinary tract infection, site not specified; R65.10 Systemic inflammatory response syndrome (SIRS) of non-infectious origin without acute organ dysfunction; K76.0 Fatty (change of) liver, not elsewhere classified; I10 Essential (primary) hypertension; E83.39 Other disorders of phosphorus metabolism; E87.6 Hypokalemia; D75.89 Other specified diseases of blood and blood-forming organs; K21.9 Gastro-esophageal reflux disease without esophagitis; R74.01 Elevation of levels of liver transaminase levels; Z82.49 Family history of ischemic heart disease and other diseases of the circulatory system; Z83.3 Family history of diabetes mellitus; Z68.1 Body mass index [BMI] 19.9 or less, adult
CPT/HCPCS: 36415; 76705; 80053; 80061; 80307; 80320; 81001; 81025; 82140; 82306; 82607; 83036; 83605; 83690; 83735; 84100; 84443; 84484; 85025; 85610; 85730; 87086; 96365; G0378; J2405; J2470; J3480; J7060